=== PATIENT | male | born 1970 | race Caucasian/White ===

== ENCOUNTER → 2017-04-13 | Emergency (ER) | payer BC, MEDICARE ==
[~2017-04-13] VITALS: Ht 182.9 cm; Wt 113.4 kg
[~2017-04-13] MED LIST: AC325T PO; CALC500T6 PO; CETI10TA17 PO; DXM4T PO; HC1C30 TOP; HDR4T PO; HYDR25CA5 PO; LEVE100S PO; LRZ1T PO; MULT-974 PO; OMEP20CA12 PO; ONDANSETRON 4 MG/2 ML (SDV) Z0FRAN IVP ONE; OXC40TCR PO; OXC5T PO; PANTOPRAZOLE 40 MG/10 ML (PROTONIX) VIAL IV ONE; PHEN100O PO; SNN187T PO; fentaNYL INJECTION 100 MCG/2 ML AMP IVP STA
[2017-04-13 19:01] LABS: BASOPHILS % (AUTO) 0 % (0-10); EOSINOPHILS # (AUTO) 0.1 10^3/uL (0.0-0.3); EOSINOPHILS % (AUTO) 1 % (0-10); LYMPHOCYTES # (AUTO) 3.5 X 10^3 (1.0-4.0); LYMPHOCYTES % (AUTO) 33 % (12-44); MEAN CORPUSCULAR HEMOGLOBIN 31 PG (25-34); MEAN CORPUSCULAR HGB CONC 34 G/DL (32-36); MEAN CORPUSCULAR VOLUME 92 FL (80-99); MEAN PLATELET VOLUME 9.8 FL (7.4-10.4); MONOCYTES % (AUTO) 9 % (0-12); NEUTROPHILS % (AUTO) 57 % (42-75); PLATELET COUNT 259 10^3/uL (130-400); RED BLOOD COUNT 5.12 10^6/uL (4.35-5.85); WHITE BLOOD COUNT 10.6 10^3/uL (4.3-11.0)
[2017-04-13 19:22] LABS: CREATINE KINASE 343 U/L (30-200); MAGNESIUM 2.6 MG/DL (1.8-2.4)
--- NOTE | 2017-04-13 19:29 | Diagnostic Imaging Report ---
CT HEAD WO-R/O STROKE Technique: Unenhanced CT imaging of the head. Indication: Right-sided weakness. Comparison: 12/09/2013. Findings: No hyperdense hemorrhage or dense MCA sign. No evidence of acute territorial infarct. Subcortical white matter hypoattenuation in the high paramedian left frontal region has improved but persistS. Dystrophic calcifications within the high left frontal region are similar. There is no midline shift or hydrocephalus. Basilar cisterns remain patent. There is an old keyanna hole defect in the left frontal calvarium. Chronic opacification of the right maxillary sinus is unchanged. Other visualized paranasal sinuses are clear. Mastoid air cells are also clear. Impression: 1. No CT evidence of new large territorial infarct or acute intracranial hemorrhage. 2. Chronic deep white matter hypoattenuation high left frontal region may relate to old ischemic injury versus gliosis. MRI could be performed to assess for acute on chronic ischemic injury, as clinically indicated. Dictated by: Dictated on workstation # [id number]
--- NOTE | 2017-04-13 19:34 | ED Neurological Problem ---
General Chief Complaint: Neurological Problems Stated Complaint: SEIZURE Nursing Triage Note: PT HAD SEIZURE AT HOME, WITNESSED BY WHO STATES THE PT WAS SITTING IN A CHAIR EATING DINNER AND BEGAIN TO HAVE TONIC CLONIC SEIZURE, LASTING ABOUT 5 MINUTES. PT WAS VERY DIAPHORETIC AND APHASIC POSTICTAL BUT WAS ABLE TO AMBULATE TO BATHROOM AND TO THE VEHICLE. PT IS CURRENTLY LETHARGIC BUT ABLE TO ANSWER QUESTIONS SLOWLY. PT ALSO STATES R LEG NUMBNESS AND HEADACHE. PT HAS HX OF BRAIN TUMOR CAUSING SEIZURES IN THE PAST, HAD MEDICATIONS CHANGED ABOUT 5-6 WEEKS AGO. Nursing Sepsis Screen: No Definite Risk Source: patient (SOME MEMORY IMPAIRMENT OF EVENTS THIS EVENING, AND IS LIMITED HISTORIAN), family ( GIVES MOST OF INFORMATION) History of Present Illness Time seen by provider: 18:50 Initial Comments PT ARRIVES VIA POV FROM HOME PT WITH HISTORY OF SEIZURES DUE TO BRAIN TUMOR--DX 2013--NO SEIZURE FOR OVER A YEAR HAS BEEN WEANED OFF DEPAKOTE 1500 MG A DAY, AND HIS DOSE OF KEPPRA HAS BEEN INCREASED OVER THE LAST 5-6 WEEKS. PT ALSO TAKES LAMICTAL. PT WAS EATING DINNER TONIGHT AND HAD A GENERALIZED TONIC-CLONIC SEIZURE, LASTING 5 MINUTES. STATES HIS FIRST SEIZURE AT THE TIME HE WAS DX WITH BRAIN TUMOR WAS WORSE THAN THIS BUT WAS SIMILAR, BUT SUBSEQUENT SEIZURES WERE MILDER, FOCAL / PARTIAL SEIZURES WITH SHAKING OF MOSTLY RIGHT ARM AND LEG, AND PT WAS NOT UNRESPONSIVE DURING THE EPISODES, AND COULD TALK A LITTLE . NO INJURY PT HAD POST ICTAL CONFUSION, AND IS STILL SOMEWHAT CONFUSED/SLOW MENTATION C/O HEADACHE--RATES 3/10 C/O RIGHT LEG NUMBNESS AND WEAKNESS, SOME DIFFICULTY WALKING AT HOME DUE TO RIGHT LEG WEAKNESS--PT STATES WHEN HE WAS FIRST DX WITH BRAIN TUMOR, HE HAD RIGHT SIDE WEAKNESS/PARALYSIS/PARESTHESIAS, BUT THOSE SYMPTOMS ESSENTIALLY HAD RESOLVED WITH TREATMENT OF TUMOR PT HAS HAD ONGOING ISSUES WITH TREMORS TO HANDS, AND LEGS--RIGHT > LEFT NO VISION CHANGES NO DIZZINESS C/O MILD NAUSEA, NO VOMITING NO COUGH OR DIFFICULTY BREATHING NO CHEST PAIN OR PALPITATIONS NO FEVER OR RECENT ILLNESS NO NECK PAIN OR STIFFNESS WAS VERY DIAPHORETIC PCP: DR. [facility] NEUROLOGY: Allergies and Home Medications Allergies Coded Allergies: phenytoin (Unverified Allergy, Unknown, 03/14/14) Home Medications Acetaminophen 325 Mg Tab, 650 MG PO Q4H PRN for PAIN for 7 Days Prescribed by: MARI HAMILTON on 12/22/13 1444 Calcium Carbonate 500 Mg Tab.chew, 500-1,000 MG PO Q3H PRN for HEARTBURN, #1 Prescribed by: MARI HAMILTON on 12/22/13 1444 Cetirizine Hcl 10 Mg Tablet, 10 MG PO DAILY, (Reported) Dexamethasone 4 Mg Tab, 16 MG PO DAILY@0700, #1 Prescribed by: MARI HAMILTON on 12/22/13 1444 Hydrocortisone 30 Gm Cr, 1 APPLIC TOP TID for 1 Days Prescribed by: MARI HAMILTON on 12/22/13 1444 Hydromorphone Hcl 4 Mg Tab, 4 MG PO Q4H PRN for PAIN, #30 Prescribed by: MARI HAMILTON on 12/22/13 1444 Hydroxyzine Pamoate 25 Mg Capsule, 25 MG PO Q8HR PRN for ITCHING, #1 Prescribed by: MARI HAMILTON on 12/22/13 1444 Levetiracetam 100 Mg/1 Ml Solution, 2,000 MG PO BID PRN for SEIZURE ACTIVITY for 1 Days Prescribed by: MARI HAMILTON on 12/22/13 1541 Lorazepam 1 Mg Tab, 1 MG PO BID for 30 Days, Ref 0 Prescribed by: MARI HAMILTON on 12/22/13 144 Multivitamin 1 Each Tablet, 1 TAB PO DAILY, (Reported) Omeprazole 20 Mg Capsule.dr, 40 MG PO DAILY, (Reported) TAKES 2 (20MG) CAPSULES DAILY Oxycodone Hcl 5 Mg Tab, 15 MG PO Q3H PRN for PAIN, #60 Ref 1 Prescribed by: MARI HAMILTON on 12/22/13 1444 Oxycodone Hcl 40 Mg Tab, 40 MG PO Q12HR for 28 Days, Ref 0 Prescribed by: MARI HAMILTON on 12/22/13 144 Phenytoin 100 Mg/4 Ml Oral.susp, 150 MG PO BID for 60 Days, Ref 1 Prescribed by: MARI HAMILTON on 12/22/13 1444 Senna 187 Mg Tab, 25.8 MG PO BID for 60 Days, Ref 1 Prescribed by: MARI HAMILTON on 12/22/13 0881 Constitutional: no symptoms reported Eyes: No Symptoms Reported Ears, Nose, Mouth, Throat: no symptoms reported Respiratory: no symptoms reported Cardiovascular: no symptoms reported Gastrointestinal: see HPI, No abdominal pain, No loss of appetite, nausea, No vomiting Genitourinary: no symptoms reported Musculoskeletal: no symptoms reported Skin: no symptoms reported Psychiatric/Neurological: See HPI, Cognitive Dysfunction, Headache, Numbness, Tingling, Tonic Clonic Seizures, Weakness Endocrine: No Symptoms Reported Hematologic/Lymphatic: No Symptoms Reported Past Dztrvez-Tsuloa-Sqjqev Hx Patient Social History Alcohol Use: Denies Use Recreational Drug Use: No Smoking Status: Never a Smoker Recent Foreign Travel: No Contact w/Someone Who Travel: No Recent Infectious Disease Expo: No Surgeries HX Surgeries: Yes (BACK SURGERY; BRAIN BIOPSY) Surgeries: Neurological, Orthopedic Respiratory Hx Respiratory Disorders: No Cardiovascular Hx Cardiac Disorders: No Neurological Hx Neurological Disorders: Yes (TREMORS) Neurological Disorders: Brain Tumor, Seizure Disorder Genitourinary Hx Genitourinary Disorders: No Gastrointestinal Hx Gastrointestinal Disorders: Yes Gastrointestinal Disorders: Gastroesophageal Reflux Musculoskeletal Hx 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) Musculoskeletal Disorders: Degenerate Disk Disease, Rheumatoid Arthritis, Chronic Back Pain Endocrine Hx Endocrine Disorders: No HEENT HX ENT Disorders: No Cancer Hx Cancer: Yes Cancer: Brain Psychosocial Hx Psychiatric Problems: No Integumentary HX Skin/Integumentary Disorder: No Blood Transfusions Hx Blood Disorders: No Family Medical History Family Medial History: Family history: Diabetes mellitus 03 FATHER Family history: Hypertension 03 FATHER Myocardial infarction 03 FATHER Physical Exam Vital Signs Vital Sign - Last 12Hours 04/13/17 04/13/17 04/13/17 19:05 19:40 23:19 Temp 98.0 Pulse 102 Resp 18 B/P (MAP) 135/92 Pulse Ox 96 O2 Delivery Nasal Cannula O2 Flow Rate 2.00 Capillary Refill : Less Than 3 Seconds General Appearance: WD/WN, no apparent distress, other (LETHARGIC, WITH SLOW MENTATION) HEENT: PERRL/EOMI, normal ENT inspection, TMs normal, pharynx normal Neck: non-tender, full range of motion, supple, normal inspection Respiratory: normal breath sounds, no respiratory distress, no accessory muscle use Cardiovascular: normal peripheral pulses, regular rate, rhythm, no edema, no JVD, no murmur Peripheral Pulses: 3+ Dorsalis Pedis (R), 3+ Left Dors-Pedis (L), 3+ Radial Pulses (R), 3+ Radial Pulses (L) Gastrointestinal: normal bowel sounds, non tender, soft Back: normal inspection, no vertebral tenderness Extremities: normal range of motion, non-tender, normal inspection, no pedal edema, no calf tenderness, normal capillary refill Neurologic/Psychiatric: 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 IS ABLE TO RECALL EVENTS OF EARLIER TODAY. 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 ) Crainal Nerves: normal hearing, normal speech, PERRL Coordination/Gait: normal finger to nose Motor/Sensory: no sensory deficit, no pronator drift, other ( ABOVE) Skin: normal color, warm/dry Progress/Results/Core Measures Results/Orders Lab Results Laboratory Tests Test 04/13/17 18:54 Range/Units White Blood Count 10.6 4.3-11.0 10^3/uL Red Blood Count 5.12 4.35-5.85 10^6/uL Hemoglobin 16.0 13.3-17.7 G/DL Hematocrit 47 40-54 % Mean Corpuscular Volume 92 80-99 FL Mean Corpuscular Hemoglobin 31 25-34 PG Mean Corpuscular Hemoglobin Concent 34 32-36 G/DL Red Cell Distribution Width 12.0 10.0-14.5 % Platelet Count 259 130-400 10^3/uL Mean Platelet Volume 9.8 7.4-10.4 FL Neutrophils (%) (Auto) 57 42-75 % Lymphocytes (%) (Auto) 33 12-44 % Monocytes (%) (Auto) 9 0-12 % Eosinophils (%) (Auto) 1 0-10 % Basophils (%) (Auto) 0 0-10 % Neutrophils # (Auto) 6.0 1.8-7.8 X 10^3 Lymphocytes # (Auto) 3.5 1.0-4.0 X 10^3 Monocytes # (Auto) 1.0 0.0-1.0 X 10^3 Eosinophils # (Auto) 0.1 0.0-0.3 10^3/uL Basophils # (Auto) 0.0 0.0-0.1 10^3/uL Prothrombin Time 13.0 12.2-14.7 SEC INR Comment 1.0 0.8-1.4 Activated Partial Thromboplast Time 26 24-35 SEC Sodium Level 142 135-145 MMOL/L Potassium Level 4.1 3.6-5.0 MMOL/L Chloride Level 108 H 98-107 MMOL/L Carbon Dioxide Level 17 L 21-32 MMOL/L Anion Gap 17 H 5-14 MMOL/L Blood Urea Nitrogen 12 7-18 MG/DL Creatinine 1.01 0.60-1.30 MG/DL Estimat Glomerular Filtration Rate > 60 BUN/Creatinine Ratio 12 0-20 Glucose Level 96 70-105 MG/DL Glucometer 90 70-110 MG/DL Calcium Level 9.6 8.5-10.1 MG/DL Magnesium Level 2.6 H 1.8-2.4 MG/DL Total Bilirubin 0.6 0.1-1.0 MG/DL Aspartate Amino Transf (AST/SGOT) 31 5-34 U/L Alanine Aminotransferase (ALT/SGPT) 66 H 0-55 U/L Alkaline Phosphatase 80 40-136 U/L Total Creatine Kinase 343 H 30-200 U/L Creatine Kinase MB 4.4 <6.6 NG/ML Troponin I < 0.30 <0.30 NG/ML Total Protein 7.6 6.4-8.2 GM/DL Albumin 4.8 H 3.2-4.5 GM/DL TSH [place] Testing 1.80 0.35-4.94 UIU/ML Valproic Acid (Depakene) Level < 2.0 L 50.0-100.0 UG/ML My Orders Orders - MUKUND WU DO Saline Lock/Iv-Start (04/13/17 18:51) Ekg Tracing (04/13/17 18:51) O2 (04/13/17 18:51) Monitor-Rhythm Ecg Trace Only (04/13/17 18:51) Ct Head Wo-R/O Stroke (04/13/17 18:51) Cbc With Automated Diff (04/13/17 18:51) Creatine Kinase (04/13/17 18:51) Creatine Kinase Mb (04/13/17 18:51) Magnesium (04/13/17 18:51) Protime With Inr (04/13/17 18:51) Partial Thromboplastin Time (04/13/17 18:51) Thyroid Analyzer (04/13/17 18:51) Troponin I (04/13/17 18:51) Ua Culture If Indicated (04/13/17 18:51) Valproic Acid (04/13/17 18:51) Comprehensive Metabolic Panel (04/13/17 19:28) Chest 1 View, Ap/Pa Only (04/13/17 19:34) Fentanyl Injection (Sublimaze Injection (04/13/17 19:39) Ondansetron Injection (Zofran Injectio (04/13/17 20:00) Pantoprazole Injection (Protonix Injecti (04/13/17 20:00) Medications Given in ED Current Medications Medications Dose Ordered Sig/Lawson Route Start Time Stop Time Status Last Admin Dose Admin Ondansetron HCl 4 mg ONCE ONCE IVP 04/13/17 20:00 04/13/17 20:01 DC 04/13/17 19:57 4 MG Pantoprazole 40 mg ONCE ONCE IV 04/13/17 20:00 04/13/17 20:01 DC 04/13/17 19:57 40 MG Vital Signs/I&O Vital Sign - Last 12Hours 04/13/17 04/13/17 04/13/17 19:05 19:40 23:19 Temp 98.0 98.0 Pulse 102 83 Resp 18 18 B/P (MAP) 135/92 Pulse Ox 96 O2 Delivery Nasal Cannula Nasal Cannula O2 Flow Rate 2.00 Blood Pressure Mean: 106 Progress Note : Progress Note HEADACHE IMPROVED WITH MEDICATION PT WITH IMPROVED MENTATION PARESTHESIAS AND WEAKNESS TO RIGHT LEG RESOLVED PT STATES HE FEELS BACK TO NORMAL PRIOR TO DISMISSAL PT AMBULATED OUT OF ER WITHOUT DIFFICULTY. ECG Initial ECG Impression Time: 18:59 Initial ECG Rate: 95 Initial ECG Rhythm: Normal Sinus Initial ECG Impression: Normal Initial ECG Comparisson: Unchanged (EXCEPT FOR SLOWER RATE.) Diagnostic Imaging Comments CT HEAD--NO ACUTE PROCESS, CHRONIC CHANGES--PER RADIOLOGIST REPORT @ 1935 CXR--NO ACUTE PROCESS, PER RADIOLOGIST REPORT @ 8 Reviewed: Reviewed by Me Departure Communication Progress Notes 2004--CALLED [facility] 2008--SPOKE WITH SANDWICH COUNTER ATTENDANTJON. HE WILL PAGE NEUROLOGIST/EPILEPSY SPECIALIST DATA ARCHITECT MANAGER 2015--[facility] CALLED BACK 2019--SPOKE WITH DR. SOLIMAN, NEUROLOGIST DATA ARCHITECT MANAGER. SHE ADVISES TO RESTART DEPAKOTE--1000 MG TONIGHT AND THEN 1500 MG EVERY MORNING. SHE WILL INFORM DR. SHEIKH IN THE MORNING, AND HIS OFFICE WILL CONTACT PT REGARDING FOLLOW UP APPOINTMENT ( PREVIOUSLY SCHEDULED ROUTINE FOLLOW UP APPOINTMENT FOR 05/12/17) PT AND FAMILY AGREEABLE TO THIS PLAN. PT HAS PLENTY OF DEPAKOTE TABLETS AT HOME. Impression Impression: Primary Impression: Seizure Additional Impression: Hx of brain cancer Disposition: HOME, SELF-CARE Condition: Improved Departure-Patient Inst. Referrals: CHALO CARPENTER MD (PCP/Family) Primary Care Physician Patient Instructions: Seizures, Adult (DC) Add. Discharge Instructions: RESTART DEPAKOTE--TAKE 1000 MG TONIGHT AND THEN TAKE 1500 MG EVERY MORNING CONTINUE YOUR OTHER MEDICATIONS PRESCRIBED FOLLOW UP WITH YOUR NEUROLOGIST TOMORROW--HIS OFFICE SHOULD BE CONTACTING YOU REGARDING FURTHER FOLLOW UP APPOINTMENT All discharge instructions reviewed with patient and/or family. Voiced understanding. MUKUND WU DO Apr 13, 2017 19:34
[2017-04-13 19:41] LABS: TROPONIN I < 0.30 NG/ML (<0.30)
[2017-04-13 19:44] LABS: VALPROIC ACID < 2.0 UG/ML (50.0-100.0)
[2017-04-13 19:59] LABS: ALANINE AMINOTRANSFERASE 66 U/L (0-55); ALBUMIN 4.8 GM/DL (3.2-4.5); ANION GAP 17 MMOL/L (5-14); ASPARTATE AMINO TRANSFERASE 31 U/L (5-34); BILIRUBIN,TOTAL 0.6 MG/DL (0.1-1.0); BLOOD UREA NITROGEN 12 MG/DL (7-18); BUN/CREATININE RATIO 12 (0-20); CALCIUM 9.6 MG/DL (8.5-10.1); CARBON DIOXIDE 17 MMOL/L (21-32); CHLORIDE 108 MMOL/L (98-107); CREATININE SERUM 1.01 MG/DL (0.60-1.30); GFR ESTIMATED > 60; GLUCOSE 96 MG/DL (70-105); HEMOLYSIS 11 (-100-29); ICTERUS 0.6 (-100-1.9); LIPEMIA 11 (-100-49); POTASSIUM 4.1 MMOL/L (3.6-5.0); SODIUM 142 MMOL/L (135-145); TOTAL PROTEIN 7.6 GM/DL (6.4-8.2)
--- NOTE | 2017-04-13 19:59 | Diagnostic Imaging Report ---
EXAM: CHEST 1 VIEW, AP/PA ONLY INDICATION: Right-sided weakness. Seizure. COMPARISON: Chest radiographs 12/06/2013. FINDINGS: Low lung volumes. Normal heart size and pulmonary vascularity. No dense consolidation, pleural effusion or pneumothorax. No acute osseous findings. No significant change. IMPRESSION: Low lung volumes. Otherwise, no acute cardiopulmonary findings. Dictated by: Dictated on workstation # [id number]
[2017-04-13 23:19] VITALS: BP 117/84
--- OUTSIDE RECORDS SUMMARY | 2017-04-14 09:25 | XMS REPORT | Continuity of Care Document ---
Author Author [facility] Organization [facility] Address Unknown Phone Unavailable Allergies Medications Problems Procedures Results Encounters ACCT No. Visit Date/Time Discharge Status Pt. Type Provider Facility Loc./Unit Complaint [id number] 03/14/2014 09:33:00 2013 11:31:00 DIS Emergency [id number] 12/05/2013 15:09:00 2013 15:15:00 DIS Inpatient [id number] 11/27/2013 22:24:00 2013 00:40:00 DIS Emergency
--- OUTSIDE RECORDS SUMMARY | 2017-04-14 09:25 | XMS REPORT | Continuity of Care Document ---
Author Author [facility] Organization [facility] Address Unknown Phone Unavailable Care Team Providers Care Cutter Grind Tool Technician Name Role Phone Brenton Greer PCP [phone] Source Comments Some departments are not documenting in the electronic medical record. If you do not see the information that you expected, contact Release of Information in the Health Information Management department at [phone] for further assistance in locating additional records.[facility] Active Allergies and Adverse Reactions Allergen Noted Date Severity Reactions Comments Dilantin 06/04/2016 High RASH Current Medications Prescription Sig. Disp. Refills Start End Date Status Date senna/docusate Take 1 Tab by mouth twice 12/05/19 Active (SENOKOT-S) 8.6/50 mg daily. [address](+) Take 2 Caps by mouth 90 Cap 4 12/22/19 Active (PRILOSEC) 20 mg capsule daily. 14 NAPROXEN SODIUM (ALEVE Take by mouth. Active PO) sildenafil(+) (VIAGRA) 50 Take 1 Tab by mouth as 10 Tab 0 10/02/20 Active mg tablet Needed for Erectile 15 dysfunction. divalproex ER (DEPAKOTE Take 1 tab 3 times daily; 270 Tab 3 04/04/20 Active ER) 500 mg tablet equal 1500mg 16 diazePAM (VALIUM) 10 mg TAKE ONE TABLET BY MOUTH 10 Tab 3 09/03/20 Active tablet 30-60 MINUTES BEFORE MRI 16 Levetiracetam 1,000 mg take 2 tabs twice daily 360 Tab 3 10/31/19 Active tab 17 HYDROcodone/acetaminophen Take 1 Tab by mouth every 100 Tab 0 Active (NORCO) 5/325 mg tablet 4 hours as needed for 17 Pain ondansetron (ZOFRAN) 8 mg take 1 tab every 8 hours 60 Tab 5 12/30/19 Active tablet as needed for nausea 17 LORazepam (ATIVAN) 1 mg 1 Tab every 12 hours. 60 Tab 5 01/24/20 Active tablet 17 ranitidine(+) (ZANTAC) Take 1 Tab by mouth twice 180 Tab 3 01/29/20 Active 150 mg tablet daily. 17 hydrocortisone (CORTEF) Take with food. Take 2 270 Tab 4 01/30/20 Active 10 mg tablet in am and 1 at 4 pm. 17 PARoxetine (PAXIL) 40 mg Take 1 Tab by mouth 90 Tab 3 01/30/20 Active tablet daily. 17 lamoTRIgine (LAMICTAL) 25 Take 1 Tab by mouth twice 60 Tab 11 Active mg tablet daily. 17 lamoTRIgine (LAMICTAL) Take 1 Tab by mouth 60 Tab 11 03/05/20 Active 100 mg tablet daily. 17 Levetiracetam (KEPPRA) Take as instructed 180 Tab 11 03/05/20 Active 1,000 mg tab 17 Active Problems Problem Noted Date Insomnia 02/01/2015 Overview: 02/01/2015 Even with the ativan at night he only sleeps a few hours at a time. Very anxious and under a lot of stress. Will start paxil 10 mg and see if it will help with anxiety and with sleep. L ast Assessment & Plan: Improved Fatigue 06/20/2014 Overview: 06/20/14 have asked that he minimize day time sleeping and start melatonin prn at night 01/28/2017 MRI is stable. He is spending a lot of time in bed. L ast Assessment & Plan: Managing well. Steroid long-term use 04/26/2014 Overview: Previously on decadron, now on hydrocortisone: tremors, swelling, and agitation L ast Assessment & Plan: Lasix for 3 days to reduce swelling around his neck Persistent headaches 12/23/2013 Overview: 12/21/2013 I started him on oxycontin last week and he had good relief but the doctor at rehab stopped it due to rash and tried morphine at lower dose with exacerbation of pain. He is back on the oxycontin now and much better. 01/18/14:his head aches are better and has been using less of the prn oxycodone,will continue with the Oxycontin and oxycodone PRN. Continue with the decadron 16 mg PO q day 03/01/2014 He has not needed any breakthrough medication for over three weeks. He is down to 8 mg a day on decadron. We will cut him to 4 mg for two weeks then to 2 mg. We will cut the oxycontin to 30mg bid. 05/25/2014 He is well controlled on 20 bid of oxycontin and using only prn tylenol. 06/20/2014 We will try 20/10 on his oxycontin this month and see how he does. Some of fatigue is likely medication. 09/12/2014 He has a headache about every 3 days and it is relieved with tylenol. He is taking 20/10/ of oxycontin. We will try tapering his dose to 10/10 for a week then 10/0. If he has to use a lot of breakthrough he will restart the regular dose. 03/29/2015 Using only PRN tylenol! 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 He was found on CT scan to have a Left frontal lesion that had vasogenic edema, that was concerning for a primary brain tumor. Because patient continued to have seizures and was not maintaining his airway he was intubated and transferred to for further treatment of seizures and biopsy of this new lesion. 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 He was discharged to in patient rehab. 12/21/2012 After thinking about the options he has elected to undergo combined temodar and radiation therapy here at . We will start his temodar klarissa and add in xrt. 01/18/14:completed day 15 of XRT today and has been tolerating the XRT and temodar well.He will complete radiation and Temodar and will re image him with a MRI in 6 weeks from today. 03/01/2014 He is doing much better. His MRI shows improvement. We will begin maintenance temodar 150 mg.m2. 03/29/14 exam stable, will see neuro about seizures, continue with cycle 2 temodar 04/26/14 exam stable, will continue with temodar 05/25/2014 MRI is improved again. He is more alert but having more seizures. He is being more active. He has nothing focal on his exam. We will continue the temodar. I asked them to taper the hydrocortisone to 10. RTC in one month and MRI in 3 months. 06/20/14 exam stable, tolerating temodar, return 1 month, mri in 2 months. He is still cognitively slow and asks same questions repeatedly. His executive function is poor. He remains TOTALLY and PERMANENTLY DISABLED due to his cognitive and executive function. He is slow to ambulate as well. 07/20/14: exam stable, last seizure in April. Pt was started on lamictal in April and since then he has not had seizure but he has had increased nausea since then. No vomiting. He reduced hydrocortison to 10 mg in am and 5 mm in noon. He has also reduced ativan with an aim of stopping it per his neurologist recommendation. He is due for MRI in am month. 08/15/2014: Still having some nausea associated with temodar. MRI stable with small area of increased intensity likely representing post radiation changes. Will try premedication with zofran, ativan and add dexamethasone 2 mg on days 1-7 to help with nausea. MRI in 2 months. 09/12/2014 He had a lot of nocturia on the days he took the dexamethasone. He is fine now. Both feel his memory and speech are better although he still has days he does not know what day it is. He will continue the temodar and RTC in 4 weeks with an MRI. 10/10/2014 More headaches with his chemotherapy otherwise stable. MRI is stable from last month and still markedly improved from start. Will stop the decadron with the temodar and instead put back on ativan with each dose of zofran. Will have him use oxycontin 20 mg at hs for his headache. RTC in 4 weeks with lab. 11/07/2014 He is doing very well. They did 20 bid of oxycontin during the chemotherapy as well as added lorazepam to the zofran. Then they tapered him down to 10 bid on the oxycontin and he has used tylenol only twice! He is having trouble with sleeping on none chemotherapy nights staying awake until 3 AM. Will add the ativan at night on nonchemo nights. Continue temodar and reimage in December. 12/06/2014 He is on 10 mg of oxycontin in the morning only and doing well. He does get shaky after working for awhile. We will see him in 4 weeks with an MRI. He will try not increasing his oxycontin during the chemotherapy. He will also try tapering off the zofran he is taking at the end of the month. I think as his opioids are decreased he will not need the zofran. 01/03/2015 He is doing well with the 10 mg oxycontin in am. He still has some shakes but no real seizure activity. MRI improved since started therapy but stable since last scan. Will repeat in 3 months. Discussed potentially stopping his chemotherapy this spring. He is very anxious about this. Will stop the oxycontin and see how he does. RTC in 4 weeks and continue temodar. 02/01/2015 Repeat MRI done as he had a seizure on Thursday. He has had more headaches without the oxycontin but they are relieved with tylenol. He has been a lot more anxious and still having trouble with sleep. 02/27/2015 He is doing quite well today, mood has improved with Paxil. Continue Temodar as prescribed and follow up in 4 week with labs and 8 weeks with MRI 03/29/2015 Not using any opioids for his headaches. He has been more tired and sleepy this week but had different activities. Physical activities have been limited as they are afraid he will have a seizure. We discussed this at length. He will gradually increase his exercise. RTC in one month with MRI. Will discuss how long to treat him at that time. 04/26/2015 He is feeling better than he has for 18months. Not taking opioids any more. Still takes bid zofran but will try to taper off of this. Neurologically stable with reduced memory and executive funciton. MRI stable. Will STOP TEMODAR at this time and see him in 2 months with MRI and levels of his anticonvulsants. We discussed at length lack of data to continue chemotherapy. 07/03/2015 Feeling well. Had seizure since last visit and level was low. Increased dose and they wish to have more frequent level testing. MRI stable. Will see in 2-3 months with MRI and do levels at home more regularly. 10/02/2015 He has a URI currently. Lots of questions again about his tumor and size. MRI is stable. Will see in 3-4 months with MRI. 01/29/2016 He is feeling well without complaints. MRI stable today. RTC in 4 months with MRI. 06/04/2016 MRI appears preliminarily stable. RTC in 4 months with MRI. 10/01/2016 MRI is stable. Encouraged patient to follow-up with neurologists with regards to tremor. RTC in 4 months with MRI. 01/28/2017 He gets up and helps daughter and then goes back to bed. He spends a lot of time in bed. He has some tremor in his right leg. MRI is unchanged. thinks memory may be worse. Will increase his paxil and his replacement hydrocortisone and see if he feels better. RTC in 4 months with MRI. L ast Assessment & Plan: He is doing quite well, staying very busy. His depression and insomnia have improved on the Paxil and he is managing his fatigue well. He is to follow up in 4 weeks with lab. PLAN 1. Continue Temodar at prescribed dose 2. Return to clinic in 4 weeks with labs and visit 3. Will get MRI and labs with visit in 8 weeks 4. F/U in interim as needed Chemotherapy follow-up examination 12/15/2013 Elevated CPK 11/29/2013 SAH (subarachnoid hemorrhage) (HCC) 11/28/2013 Seizure disorder (HCC) 11/28/2013 Overview: 01/18/14:On Keppra and Depakote now. Dilantin discontinued after he had rash. No seizures in the last 3 weeks ,will continue the keppra and depakote 03/29/14 2 seizures in the past 2 weeks, will send to neuro 04/26/14 no actual seizure activity, will start lamictal and taper off the morning ativan, keep 2mg at night 05/25/2014 Seeing neurology now and having meds changed. 12/06/2014 No seizures for over 6months. 02/01/2015 Had a seizure Thursday after a long hard week end. Also had viral infection starting that day. MRI is stable and his exam is stable. Discussed this is likely related to his fatigue and long week end but may also be low levels of his drugs. Will continue the temodar and see him in 4 weeks with counts. 02/27/2015 No seizure since last visit. Depakote was increased by neurologist Dr. Mcgrath Last Assessment & Plan: No recent seizure activity. Continue medication as prescribed and close follow up with Dr. Mcgrath. Resolved Problems Problem Noted Date Resolved Date Nausea 06/20/2014 11/07/2014 Overview: 06/20/2014 This has a dysgeusia component to it. It usually occurs in the afternoon but last night occurred after he went to bed and was relieve with granola bar. I encourage him to have a snack late afternoon. If that does not relieve the nausea he can schedule the compazine but it will impair his fatigue and cause sedation. 07/20/14: his nausea is worse and he has reduced his ativan per neuro recs. 09/12/2014 Under better control with adding the decadron. L ast Assessment & Plan: - we have started reglan to see if this helps his nausea. Pain in left hip 03/29/2014 01/05/2015 Last Assessment & Plan: We will continue to titrate his pain medicine, but will titrate the ativan first Starting next week, decrease oxycontin to 10mg in the morning and 20mg at night- prescriptions provided Thrush, oral 01/18/2014 05/26/2014 Overview: Currently on Nystatin swish. Diflucan prescribed Chemotherapy induced nausea and vomiting 12/27/2013 03/03/2014 Rash 12/23/2013 08/15/2014 Overview: 12/21/2013Very pruritic rash over most of body. When seen last week I thought at least part of it was fungal. He has had diflucan and his mouth has cleared as well as some of the rash in creases but overall he is more erythematous and we will stop the dilantin by tapering in half over several days. If it does not resolve will have to look at other drugs. 01/18/14:Rash has resolved after stopping the dilantin Rhabdomyolysis 11/30/2013 12/23/2013 Hypernatremia 11/30/2013 12/23/2013 Hyperchloremia 11/30/2013 12/23/2013 THERESA (acute kidney injury) (HCC) 11/29/2013 03/03/2014 Respiratory failure (HCC) 11/28/2013 12/23/2013 Cerebral edema (HCC) 11/28/2013 03/03/2014 Mechanically assisted ventilation 11/28/2013 12/23/2013 Brain lesion 11/28/2013 12/23/2013 Most Recent Encounters Date Type Specialty Providers Description 03/05/2017 Office Visit Neurology Mitch Mcgrath MD Tremor (Primary Dx); Partial symptomatic epilepsy with complex partial seizures, not intractable, without status epilepticus (HCC) 02/06/2017 Telephone Oncology Paloma Mendez MD Other 02/04/2017 [facility] Neurology Mitch Mcgrath MD Encounter 01/29/2017 Telephone Oncology Randy Vail MD Appointment 01/28/2017 Office Visit Oncology Paloma Mendez MD Chronic fatigue ( Primary Dx); Oligodendroglioma (HCC) 01/28/2017 [facility] Radiology Lula Currie PA-C Encounter 01/27/2017 Screening Form 01/23/2017 Refill Oncology Paloma Mendez MD Immunizations Name Dates Previously Given Next Due Flu Vaccine 07/04/2015, 09/12/2014 Quadrivalent=>3 Yo (Preservative Free) Social History Tobacco Use Types Packs/Day Years Used Date Former Smoker Pipe, Cigars Alcohol Use Drinks/Week oz/Week Comments Yes 18 Cans of 10.8 beer Last Filed Vital Signs Vital Sign Reading Time Taken Blood Pressure 134/81 03/05/2017 2:07 PM CDT Pulse 138 03/05/2017 2:07 PM CDT Temperature 36.7 C (98.1 F) 03/05/2017 2:07 PM CDT Respiratory Rate 12 03/05/2017 2:07 PM CDT Height 1.8 m (5' 10.87") 03/05/2017 2:07 PM CDT Weight 132.904 kg (293 lb) 03/05/2017 2:07 PM CDT Body Mass Index 41.02 03/05/2017 2:07 PM CDT Oxygen Saturation 92% 01/28/2017 2:27 PM CDT Plan of Care Health Maintenance Due Date Last Done Comments Physical (Comprehensive) 1977 Exam Pertussis Vaccine 1981 Tetanus Vaccine 1987 Influenza Vaccine 06/19/2017 07/04/2015, 09/12/2014 Results from Last 3 Months * TSH WITH FREE T4 REFLEX (01/28/2017 3:25 PM) Component Value Range TSH 4.579 0.35-5.00 MCU/ML Specimen Blood * CORTISOL,RANDOM (01/28/2017 3:25 PM) Component Value Range Cortisol, Random 3.8 (L) 5.0-20.0 MCG/DL Specimen Blood * COMPREHENSIVE METABOLIC PANEL (01/28/2017 3:25 PM) Component Value Range Sodium 137 137-147 MMOL/L Potassium 4.5 3.5-5.1 MMOL/L Chloride 104 98-110 MMOL/L Glucose 88 70-100 MG/DL Blood Urea Nitrogen 17 7-25 MG/DL Creatinine 1.05 0.4-1.24 MG/DL Calcium 9.7 8.5-10.6 MG/DL Total Protein 6.9 6.0-8.0 G/DL Total Bilirubin 0.5 0.3-1.2 MG/DL Albumin 4.5 3.5-5.0 G/DL Alk Phosphatase 58 25-110 U/L AST (SGOT) 25 7-40 U/L CO2 26 21-30 MMOL/L ALT (SGPT) 46 7-56 U/L Anion Gap 7 3-12 eGFR Non >60Comment: >60 mL/min The eGFR is not validated for use in drug dosing adjustments. Continue to use estimated creatinine clearance per dosing reference text. Please contact the Clinical Pharmacist for questions. eGFR >60Comment: >60 mL/min The eGFR is not validated for use in drug dosing adjustments. Continue to use estimated creatinine clearance per dosing reference text. Please contact the Clinical Pharmacist for questions. Specimen Blood * CBC AND DIFF (01/28/2017 3:25 PM) Component Value Range White Blood Cells 8.0 4.5-11.0 K/UL RBC 4.85 4.4-5.5 M/UL Hemoglobin 15.4 13.5-16.5 GM/DL Hematocrit 45.2 40-50 % MCV 93.2 80-100 FL MCH 31.7 26-34 PG MCHC 34.0 32.0-36.0 G/DL RDW 12.6 11-15 % Platelet Count 189 150-400 K/UL MPV 9.4 7-11 FL Neutrophils 65 41-77 % Lymphocytes 27 24-44 % Monocytes 7 4-12 % Eosinophils 1 0-5 % Basophils 0 0-2 % Absolute Neutrophil Count 5.20 1.8-7.0 K/UL Absolute Lymph Count 2.10 1.0-4.8 K/UL Absolute Monocyte Count 0.50 0-0.80 K/UL Absolute Eosinophil Count 0.10 0-0.45 K/UL Absolute Basophil Count 0.00 0-0.20 K/UL Specimen Blood * VALPROIC ACID LEVEL (01/28/2017 2:23 PM) Component Value Range Valproic Acid 65.5 50.0-100.0 MCG/ML Specimen Blood * LAMICTAL LEVEL (01/28/2017 2:23 PM) Component Value Range Lamictal 8.0Comment: Reference range: 2.5 to 15.0 Unit: mcg/mL ADDITIONAL INFORMATION This test was developed and its performance characteristics determined by [facility] in a manner consistent with CLIA requirements. This test has not been cleared or approved by the U.S. Food and Drug Administration. [facility], [address] [place] [address] Specimen Blood * MRI HEAD WO/W CONTRAST (01/28/2017 1:08 PM) Impressions IMPRESSION: Stable appearance to FLAIR hyperintense infiltrative mass lesion involving predominantly the high left frontal lobe, but with continued involvement of the corpus callosum and white matter of the right frontal lobe as well. Finalized by Kiel Kent M.D. on 01/28/2017 2:11 PM. Dictated by Kiel Kent M.D. on 01/28/2017 2:06 PM. Narrative Exam: MRI scan of the head. HISTORY: Evaluate for recurrent oligodendroglioma. Comparison studies: Multiple prior MRI scans of the head, dating back to 2013. The 2 most recent comparison studies are May and September 2016. TECHNIQUE: Multiplanar and multisequence MR imaging of the head was performed both before and after the administration of gadolinium contrast. Description: The examination is unchanged over the last several prior studies. Again noted is an infiltrative, FLAIR hyperintense mass lesion involving the high left frontal lobe. The margins are ill-defined, but this appears not significantly changed in size or imaging characteristics. This is not associated with contrast enhancement. There is mild gyral formal enlargement and sulcal effacement, but no significant mass effect. There are some small patchy areas of increased T1-weighted hyperintensity within the mass. There continues to be some involvement of the corpus callosum, and right tyler radiata and centrum semiovale. The remainder the examination is stable and unremarkable. The vascular flow voids are unremarkable. Diffusion-weighted imaging is not indicative of ischemia. Procedure Note Interface, Radiant Results - ThuJan 28, 2017 2:14 PM CDT Exam: MRI scan of the head. HISTORY: Evaluate for recurrent oligodendroglioma. Comparison studies: Multiple prior MRI scans of the head, dating back to 2013. The 2 most recent comparison studies are May and September 2016. TECHNIQUE: Multiplanar and multisequence MR imaging of the head was performed both before and after the administration of gadolinium contrast. Description: The examination is unchanged over the last several prior studies. Again noted is an infiltrative, FLAIR hyperintense mass lesion involving the high left frontal lobe. The margins are ill-defined, but this appears not significantly changed in size or imaging characteristics. This is not associated with contrast enhancement. There is mild gyral formal enlargement and sulcal effacement, but no significant mass effect. There are some small patchy areas of increased T1-weighted hyperintensity within the mass. There continues to be some involvement of the corpus callosum, and right tyler radiata and centrum semiovale. The remainder the examination is stable and unremarkable. The vascular flow voids are unremarkable. Diffusion-weighted imaging is not indicative of ischemia. IMPRESSION
== END | disposition home or self-care (01) ==
LOC: EDUNIT# 18:48 → ER 18:51
DX: G40.909 Epilepsy, unspecified, not intractable, without status epilepticus (principal); Z85.841 Personal history of malignant neoplasm of brain; Z88.8 Allergy status to other drugs, medicaments and biological substances
CPT/HCPCS: 36415; 70450; 71010; 80053; 80164; 82550; 82553; 82962; 83735; 84443; 84484; 85025; 85610; 85730; 93005; 93041; 96374; 96375

== ENCOUNTER → 2017-11-10 | Emergency (ER) | payer BC, MEDICARE ==
[~2017-11-10] VITALS: Ht 182.9 cm; Wt 113.4 kg
[~2017-11-10] MED LIST changes: +D5W 100 ML IVPB 100 ML IV ONE; +LORazepam INJ 2 MG/ML (ATIVAN) VIAL ONE; +NS (IVPB) 50 ML ONE; +NS IV 1000 ML 1,000 ML ONE; -ONDANSETRON 4 MG/2 ML (SDV) Z0FRAN IVP ONE; -PANTOPRAZOLE 40 MG/10 ML (PROTONIX) VIAL IV ONE; -fentaNYL INJECTION 100 MCG/2 ML AMP IVP STA
--- OUTSIDE RECORDS SUMMARY | 2017-11-10 15:50 | XMS REPORT | Continuity of Care Document ---
Author Author [facility] Organization [facility] Address Unknown Phone Unavailable Care Team Providers Care Clerical Office Worker Name Role Phone [employer] Unavailable Unavailable Problems Medications Allergies, Adverse Reactions, Alerts Immunizations Results Vital Signs Encounters Location Location Details Encounter Type Encounter Number Reason For Visit Attending Provider ADM Date DC Date Status Source OUTPATIENT [id number] [facility] 05/04/2017 05/04/2017 Active [facility] OUTPATIENT [id number] [facility] 07/06/2017 07/06/2017 Active [facility] OUTPATIENT [id number] [facility] 07/06/2017 Active [facility] OUTPATIENT [id number] ADRIANA TURNER 07/27/2017 07/27/2017 Active [facility] OUTPATIENT [id number] [facility] 10/14/2017 10/14/2017 [facility] Procedures Plan of Care Social History Assessment and Plan Family History Advance Directives Functional Status
--- OUTSIDE RECORDS SUMMARY | 2017-11-10 15:51 | XMS REPORT | Encounter Summary ---
Author Author [facility] Organization [facility] Address Unknown Phone Unavailable Care Team Providers Care Ash Pit Worker Name Role Phone PCP Unavailable Reason for Visit * Reason Comments Medication Refill Encounter Details Date Type Department Care Team Description 10/20/2017 Refill Comprehensive Epilepsy Mitch Mcgrath MD Localization- related Center [address] [facility] focal epilepsy with [facility] G[address] 1065 simple partial seizures [address] [place] [address] ([facility]) [place] [address] [phone] Social History Tobacco Use Types Packs/Day Years Used Date Former Smoker Pipe, Cigars Smokeless Tobacco: Never Used Alcohol Use Drinks/Week oz/Week Comments Yes 18 Cans of 10.8 beer Sex Assigned at Date Recorded Not on file as of this encounter Functional Status Functional Status Response Date of Assessment Does the patient have a hearing impairment: No 10/02/2015 Does the patient have a visual impairment: No 10/02/2015 Does the patient have impaired ambulation: No 10/02/2015 Does the patient have an activity of daily living No 10/02/2015 (ADL) impairment: Does the patient have an instrumental activity of No 10/02/2015 daily living (IADL) impairment: Cognitive Status Response Date of Assessment Does the patient have a cognitive impairment: No 10/02/2015 as of this encounter Plan of Treatment Date Type Specialty Care Team Description 07/27/2017 Procedure Pass Neurosurgery as of this encounter Visit Diagnoses Diagnosis 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
--- OUTSIDE RECORDS SUMMARY | 2017-11-10 15:51 | XMS REPORT | Encounter Summary ---
Author Author [facility] Organization [facility] Address Unknown Phone Unavailable Care Team Providers Care Sandblaster Stone Name Role Phone PCP Unavailable Reason for Visit * Reason Comments Medication Refill Encounter Details Date Type Department Care Team Description 09/04/2017 Refill Comprehensive Epilepsy Mitch Mcgrath MD [place] [address] [facility] [address] [place] [address] [place] [address] [phone] Social History Tobacco Use Types Packs/Day Years [...] Neurosurgery as of this encounter Visit Diagnoses Not on filein this encounter
--- OUTSIDE RECORDS SUMMARY | 2017-11-10 15:51 | XMS REPORT | Encounter Summary ---
Author Author [facility] Organization [facility] Address Unknown Phone Unavailable Care Team Providers Care Multi Skilled Operator Name Role Phone PCP Unavailable Reason for Visit * Reason Comments Seizure most recent seizure was Sep 04, 2017 Encounter Details Date Type Department Care Team Description 10/14/2017 Office Visit Comprehensive Epilepsy Mitch Mcgrath MD [facility] [address] [facility] focal epilepsy with [facility] [address] simple partial seizures [address] [place] [address] ([facility]) [place] [address] [phone] Social History Tobacco Use Types Packs/Day Years Used Date Former Smoker Pipe, Cigars Smokeless Tobacco: Never Used Alcohol Use Drinks/Week oz/Week Comments Yes 18 Cans of 10.8 beer Sex Assigned at Date Recorded Not on file as of this encounter Last Filed Vital Signs Vital Sign Reading Time Taken Blood Pressure 133/88 10/14/2017 9:44 AM ASSOCIATE PROFESSOR OF ANTHROPOLOGY Pulse 89 10/14/2017 9:44 AM ASSOCIATE PROFESSOR OF ANTHROPOLOGY Temperature 36.8 C (98.2 F) 10/14/2017 9:44 AM ASSOCIATE PROFESSOR OF ANTHROPOLOGY Respiratory Rate - - Oxygen Saturation - - Inhaled Oxygen - - Concentration Weight 133.8 kg (295 lb) 10/14/2017 9:44 AM ASSOCIATE PROFESSOR OF ANTHROPOLOGY Height 180.3 cm (5' 11") 10/14/2017 9:44 AM ASSOCIATE PROFESSOR OF ANTHROPOLOGY Body Mass Index 41.14 10/14/2017 9:44 AM ASSOCIATE PROFESSOR OF ANTHROPOLOGY in this encounter Functional Status Functional Status Response [...] impairment: No 10/02/2015 as of this encounter Instructions * Patient Instructions - Mitch Mcgrath MD - 10/14/2017 10:00 AM ASSOCIATE PROFESSOR OF ANTHROPOLOGY You should not drive unless 6 months free of alteration of consciousness, not work in close proximity of machines with moving parts, swim unsupervised or to work at high places.You should shower (without accumulation of water) instead of taking a bath if unsupervised. Contact us if there is an exacerbation of the seizures or any side effects from the antiepileptic medications. Stop Depakote 500 mg daily in this encounter Progress Notes * Mitch Mcgrath MD - 10/14/2017 10:00 AM ASSOCIATE PROFESSOR OF ANTHROPOLOGY Formatting of this note may be different from the original. Date of Service: 10/14/2017 Subjective: Bhupinder Schofield is a 47 y.o. male. History of Present Illness MEDICATIONS: Lamictal 200 mg b.i.d., Zonisamide 500 mg once a day, Depakote ER 500 mg qday CHIEF COMPLAINT: Seizure, HISTORY OF PRESENT ILLNESS: Mr. 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 His last seizures are in June 2015, in the setting of low Depakote level, May, and August. the last seizure was not induced by any medication change, missed medication, or fever. He did not lose his consciousness,. He wa sitting in the couch, and he had right hand, leg clonic movements, With head turn to the right. The patient remembers everything. They think the seizure was about 4 minutes. His talked to him after the seizure and he sounded not being able to respond. In about 10 minutes postictally he was back to normal. DuHis Lamotrigine is increased to 200 mg bid after this event. They did not notice any side effect. They saw Dr. Vail in July who recommended to follow up with serial MRIs in 6 months. He thought that there is residual low grade tumor with scar tissue that we are seeing in the high left frontal lobe. Last MRI from 07/27/2017 I reviewed the images and agree with the report: 1. Stable nonenhancing left cerebral and callosal mass. 2. Chronic opacified and atelectatic right maxillary sinus consistent with silent sinus syndrome. Past Medical History: Diagnosis Date Cancer of brain (HCC) Seizure disorder (HCC) Seizures (HCC) Family History Problem Relation Age of Onset Diabetes Father Heart Attack Father Hypertension Father High Cholesterol Father Other Father 36 AVM rupture Allergies Allergen Reactions Dilantin [Phenytoin Sodium Extended] RASH Objective: diazePAM (VALIUM) 10 mg tablet TAKE ONE TABLET BY MOUTH 30-60 MINUTES BEFORE MRI divalproex (DEPAKOTE ER) 500 mg ER tablet Take 1 tablet by mouth daily. Indications: EPILEPSY HYDROcodone/acetaminophen (NORCO) 5/325 mg tablet Take 1 Tab by mouth every 4 hours as needed for Pain hydrocortisone (CORTEF) 10 mg tablet Take with food. Take 2 in am and 1 at 4 pm. lamoTRIgine (LAMICTAL) 150 mg tablet Take 1 tablet by mouth twice daily. lamoTRIgine (LAMICTAL) 25 mg tablet Take 1 in am and 2 in pm x 4 weeks then 2 bid (Patient taking differently: Take 2 in the am and 2 at night) LORazepam (ATIVAN) 1 mg tablet Take 1 Tab by mouth every 12 hours as needed for Nausea, Vomiting or Other.... NAPROXEN SODIUM (ALEVE PO) Take by mouth. omeprazole DR(+) (PRILOSEC) 20 mg capsule Take 2 Caps by mouth daily. ondansetron (ZOFRAN) 8 mg tablet take 1 tab every 8 hours as needed for nausea PARoxetine (PAXIL) 40 mg tablet Take 1 Tab by mouth daily. senna/docusate (SENOKOT-S) 8.6/50 mg tablet Take 1 Tab by mouth twice daily. sildenafil(+) (VIAGRA) 50 mg tablet Take 1 Tab by mouth as Needed for Erectile dysfunction. zonisamide (ZONEGRAN) 100 mg capsule Take 5 capsules by mouth at bedtime daily. Objective: diazePAM (VALIUM) 10 mg tablet TAKE ONE TABLET BY MOUTH 30-60 MINUTES BEFORE MRI divalproex (DEPAKOTE ER) 500 mg ER tablet Take 1 tablet by mouth daily. Indications: EPILEPSY HYDROcodone/acetaminophen (NORCO) 5/325 mg tablet Take 1 Tab by mouth every 4 hours as needed for Pain hydrocortisone (CORTEF) 10 mg tablet Take with food. Take 2 in am and 1 at 4 pm. lamoTRIgine (LAMICTAL) 150 mg tablet Take 1 tablet by mouth twice daily. lamoTRIgine (LAMICTAL) 25 mg tablet Take 1 in am and 2 in pm x 4 weeks then 2 bid (Patient taking differently: Take 2 in the am and 2 at night) LORazepam (ATIVAN) 1 mg tablet Take 1 Tab by mouth every 12 hours as needed for Nausea, Vomiting or Other.... NAPROXEN SODIUM (ALEVE PO) Take by mouth. omeprazole DR(+) (PRILOSEC) 20 mg capsule Take 2 Caps by mouth daily. ondansetron (ZOFRAN) 8 mg tablet take 1 tab every 8 hours as needed for nausea PARoxetine (PAXIL) 40 mg tablet Take 1 Tab by mouth daily. senna/docusate (SENOKOT-S) 8.6/50 mg tablet Take 1 Tab by mouth twice daily. sildenafil(+) (VIAGRA) 50 mg tablet Take 1 Tab by mouth as Needed for Erectile dysfunction. zonisamide (ZONEGRAN) 100 mg capsule Take 5 capsules by mouth at bedtime daily. Review of Systems Neurological: Positive for seizures. All other systems reviewed and are negative. Objective: diazePAM (VALIUM) 10 mg tablet TAKE ONE TABLET BY MOUTH 30-60 MINUTES BEFORE MRI divalproex (DEPAKOTE ER) 500 mg ER tablet Take 1 tablet by mouth daily. Indications: EPILEPSY HYDROcodone/acetaminophen (NORCO) 5/325 mg tablet Take 1 Tab by mouth every 4 hours as needed for Pain hydrocortisone (CORTEF) 10 mg tablet Take with food. Take 2 in am and 1 at 4 pm. lamoTRIgine (LAMICTAL) 150 mg tablet Take 1 tablet by mouth twice daily. lamoTRIgine (LAMICTAL) 25 mg tablet Take 1 in am and 2 in pm x 4 weeks then 2 bid Levetiracetam 1,000 mg tab Take 3,000 mg by mouth twice daily. Indications: PARTIAL EPILEPSY TREATMENT ADJUNCT LORazepam (ATIVAN) 1 mg tablet Take 1 Tab by mouth every 12 hours as needed for Nausea, Vomiting or Other.... NAPROXEN SODIUM (ALEVE PO) Take by mouth. omeprazole DR(+) (PRILOSEC) 20 mg capsule Take 2 Caps by mouth daily. ondansetron (ZOFRAN) 8 mg tablet take 1 tab every 8 hours as needed for nausea PARoxetine (PAXIL) 40 mg tablet Take 1 Tab by mouth daily. senna/docusate (SENOKOT-S) 8.6/50 mg tablet Take 1 Tab by mouth twice daily. sildenafil(+) (VIAGRA) 50 mg tablet Take 1 Tab by mouth as Needed for Erectile dysfunction. zonisamide (ZONEGRAN) 100 mg capsule Take 5 capsules by mouth at bedtime daily. There were no vitals filed for this visit. There is no height or weight on file to calculate BMI. Physical Exam Head was normocephalic and atraumatic. He is alert, awake, and oriented times 3. Cranial nerves 2-12 were intact. Motor exam showed normal muscle bulk, tone , and strength except right iliopsoas which was 4/5. DTRs were 3 + in all 4 except bilateral tendons which were+1. Toes were downgoing. Cerebellar examination did not show any limb or gait ataxia. Sensory exam showed normal cold sensation in all 4 extremities. Gait was mildly wide based. There was intermittent positional tremor in rightupper extremity and right lower extremity VPA level from 07/06/2017: 50.6 Lamictal level from 07/06/2017: 7.8 Assessment and Plan: Impression: 1- Symptomatic localization-related epilepsy presenting with simple partial motor seizures. Not well controlled.One breakthrough seizure on September 03, 2017 after Zonisamide was started and Keppra was stopped. He wants to come off depakote. He thinks he was doing best when he was off Depakote. 2- Oligodendroglioma: F/u with Dr. Vail 3- Tremor: Resolved. It was side effect of Depakote. 4 Cognitive slowing: Stable. 5- Lorazepam use: The patient is on Lorazepam. He denies any sleep problem.he sleeps 8 hours a day. He denies any anxiety.We will decrease it to 0.5 mg in 2- 3 weeks after the AED changes are done. If there is worsening of anxiety they will resume to 1 mg q day. Plan: 1- Continue Zonisamide 500 mg qday 2- Stop Depakote 500 mg qday. We discussed about there risk of seizure recurrence. Dur to low dose of VPa, and previous side effects with it, it is reasonable to stop it. They agreed with the plan. 3- Continue Lamotrigine to 175 mg bid 5-RTC in 3 months 7- Decrease Ativan to 0.5 mg in 2-3 weeks. Visit start time:10:00 am Visit end time: 10:30 am MANAGEMENT AND PLAN During the visit I discussed my impression, recommended diagnostic studies, prognosis, risks and benefits of management, instructions for management, and importance of compliance. After a discussion, the patient agrees with the plan. Total time for this office visit was 30 minutes, of which 20 minutes was spent counseling the patient in regarding his seizures, medication change, and his complaints. The patient is instructed not to drive unless 6 months free of alteration of consciousness, not to work in close proximity of machines with moving parts, not to swim unsupervised or to work at high places. The patient is to shower ( without accumulation of water) instead of taking a bath if unsupervised. FOCUSED HEALTH MAINTENANCE: Smoking cessation counseling: No smoker Discussed patient's BMI with him. The body mass index is 41.14 kg/(m^2). and falls within the category of Obesity 3 (>40); Specialist visit only - will refer back to primary doctor for further care. FOLLOWUP PLAN I plan to see the patient back for follow-up in approximately 3-4 months. The patient is instructed to contact us if there is an exacerbation of the seizures or any side effects from the antiepileptic medications. Mitch Mcgrath MD Local Driver [facility] Department of Neurology in this encounter Plan of Treatment Date Type Specialty Care Team Description 07/27/2017 Procedure Pass Neurosurgery as of this encounter Visit Diagnoses Diagnosis 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
--- OUTSIDE RECORDS SUMMARY | 2017-11-10 15:51 | XMS REPORT | Clinical Summary ---
Author Author [facility] Organization [facility] Address Unknown Phone Unavailable Care Team Providers Care Collection Advisor Name Role Phone PCP Unavailable Source Comments Some departments are not documenting in the electronic medical record. If you do not see the information that you expected, contact Release of Information in the Health Information Management department at [phone] for further assistance in locating additional records.[facility] Allergies Active Allergy Reactions Severity Noted Date Comments Phenytoin Sodium Extended RASH High 06/04/2016 Current Medications Prescription Sig. Disp. Refills Start [...] as 10 Tab 0 10/02/20 Active mg tabletIndications: Needed for Erectile 15 Oligodendroglioma (HCC), dysfunction. Erectile dysfunction, unspecified erectile dysfunction type diazePAM (VALIUM) 10 mg TAKE ONE TABLET BY MOUTH 10 Tab 3 09/03/20 Active tablet 30-60 MINUTES BEFORE MRI 16 HYDROcodone/acetaminophen Take 1 Tab by mouth every 100 Tab 0 Active (NORCO) 5/325 mg tablet 4 hours as needed for 17 Pain ondansetron (ZOFRAN) 8 mg take 1 tab every 8 hours 60 Tab 5 12/30/19 Active tablet as needed for nausea 17 hydrocortisone (CORTEF) Take with food. Take 2 270 Tab 4 05/04/20 Active 10 mg tablet in am and 1 at 4 pm. 17 PARoxetine (PAXIL) 40 mg Take 1 Tab by mouth 90 Tab 3 05/04/20 Active tablet daily. 17 LORazepam (ATIVAN) 1 mg Take 1 Tab by mouth every 180 Tab 1 05/04/20 Active tablet 12 hours as needed for 17 Nausea, Vomiting or Other.... zonisamide (ZONEGRAN) 100 Take 5 capsules by mouth 150 capsule 11 Active mg capsuleIndications: at bedtime daily. 17 Localization-related focal epilepsy with simple partial seizures (HCC) lamoTRIgine (LAMICTAL) Take 1 tablet by mouth 60 tablet 11 10/20/19 Active 200 mg tabletIndications: twice daily. 18 Localization-related focal epilepsy with simple partial seizures (HCC) Levetiracetam 1,000 mg Take 3,000 mg by mouth 10/14/20 Discontin tabIndications: PARTIAL twice daily. Indications: 17 ued EPILEPSY TREATMENT PARTIAL EPILEPSY ADJUNCT TREATMENT ADJUNCT lamoTRIgine (LAMICTAL) Take 1 tablet by mouth 60 tablet 11 07/06/20 10/14/20 Discontin 150 mg tablet twice daily. 17 17 ued divalproex (DEPAKOTE ER) Take 1 tablet by mouth 60 tablet 5 07/06/20 10/14/20 Discontin 500 mg ER daily. Indications: 17 17 ued tabletIndications: EPILEPSY epilepsy zonisamide (ZONEGRAN) 100 Take 5 capsules by mouth 150 capsule 11 10/14/20 Discontin mg capsuleIndications: at bedtime daily. 17 17 ued Localization-related focal epilepsy with simple partial seizures (HCC) lamoTRIgine (LAMICTAL) 25 Take 1 in am and 2 in pm 120 tablet 1 10/14/20 Discontin mg tablet x 4 weeks then 2 bid 17 17 ued lamoTRIgine (LAMICTAL) Take 1 tablet by mouth 60 tablet 11 10/14/20 10/20/19 Discontin 200 mg tabletIndications: daily. 17 18 ued Localization-related focal epilepsy with simple partial seizures (HCC) Active Problems Problem Noted Date Insomnia 02/01/2015 [...] asked them to taper the hydrocortisone to 10/. RTC in one month and MRI in [...] SAH (subarachnoid hemorrhage) (HCC) 11/28/2013 Seizure disorder ([facility]) 11/28/2013 Overview: 01/18/14:On Keppra and Depakote now. [...] ventilation 11/28/2013 12/23/2013 Brain lesion 11/28/2013 12/23/2013 Encounters Date Type Specialty Care Team Description 10/20/2017 Refill Neurology Mitch Mcgrath MD Localization-related focal epilepsy with simple partial seizures (HCC) 10/14/2017 Office Visit Neurology Mitch Mcgrath MD Localization-related focal epilepsy with simple partial seizures (HCC) 09/04/2017 Refill Neurology Mitch Mcgrath MD 09/04/2017 Telephone Neurology Mitch Mcgrath MD Follow-up Phone Call from Last 3 Months Immunizations Name Dates Previously Given Next Due Flu Vaccine 07/04/2015, 09/12/2014 Quadrivalent=>3 Yo (Preservative Free) Family History Medical History Relation Name Comments Diabetes Father Heart Attack Father High Cholesterol Father Hypertension Father Other Father AVM rupture Relation Name Status Comments Father Alive Mother Alive Social History Tobacco Use Types Packs/Day Years Used Date Former Smoker Pipe, Cigars Smokeless Tobacco: Never Used Alcohol Use Drinks/Week oz/Week Comments Yes 18 Cans of 10.8 beer Sex Assigned at Date Recorded Not on file Last Filed Vital Signs Vital Sign Reading Time Taken Blood Pressure 133/88 10/14/2017 9:44 AM RELAY ADJUSTER Pulse 89 10/14/2017 9:44 AM RELAY ADJUSTER Temperature 36.8 C (98.2 F) 10/14/2017 9:44 AM RELAY ADJUSTER Respiratory Rate 16 07/27/2017 12:25 PM CDT Oxygen Saturation 92% 01/28/2017 2:27 PM CDT Inhaled Oxygen - - Concentration Weight 133.8 kg (295 lb) 10/14/2017 9:44 AM RELAY ADJUSTER Height 180.3 cm (5' 11") 10/14/2017 9:44 AM RELAY ADJUSTER Body Mass Index 41.14 10/14/2017 9:44 AM RELAY ADJUSTER Plan of Treatment Date Type Specialty Care Team Description 07/27/2017 Procedure Pass Neurosurgery Health Maintenance Due Date Last Done Comments PHYSICAL (COMPREHENSIVE) 1977 EXAM PERTUSSIS VACCINE 1981 TETANUS VACCINE 1987 INFLUENZA VACCINE 05/19/2017 07/04/2015, 09/12/2014 Results Not on filefrom Last 3 Months
--- OUTSIDE RECORDS SUMMARY | 2017-11-10 15:51 | XMS REPORT | Encounter Summary ---
Author Author [facility] Organization [facility] Address Unknown Phone Unavailable Care Team Providers Care Senior Business Architect Name Role Phone PCP Unavailable Reason for Visit * Reason Comments Follow-up Phone Call Encounter Details Date Type Department Care Team Description 09/04/2017 Telephone Comprehensive Epilepsy Mitch Mcgrath MD Follow-up Phone Call Center [address] [facility] [address] [place] [address] [place] [address] [phone] Social History Tobacco Use Types Packs/Day Years [...] impairment: No 10/02/2015 as of this encounter Miscellaneous Notes * Telephone Encounter - Hayley Bridges RN - 09/04/2017 4:53 PM PLUMBING MANAGER Spoke with pt and discussed increase in lamotrigine to 175 mg am 200 mg at hs for four week and then go to 200 mg bid. verbalized understanding. * Telephone Encounter - Hayley Bridges RN - 09/04/2017 1:46 PM PLUMBING MANAGER called to report pt had a seizure lasting 3-4 minutes described as arm, leg and head twitching, unable to respond during this. This occurred yesterday ( 09/03/17) Last seizure prior to this was May. No missed medications. Has had recent MRI which reported as stable. Last change in AEDs was in June: decreased Depakote to 500 mg qday, increased Lamotrigine to 175 mg bid and zonisamide 500 mg qday. Per the [facility] goal is to get off Depakote. Will discuss with Dr. Napoles (Dr. Mcgrath is out of office). in this encounter Plan of Treatment Date Type Specialty Care Team Description 07/27/2017 Procedure Pass Neurosurgery as of this encounter Visit Diagnoses Not on filein this encounter
--- OUTSIDE RECORDS SUMMARY | 2017-11-10 15:51 | XMS REPORT | Continuity of Care Document ---
Author Author [facility] Organization [facility] Address Unknown Phone Unavailable Allergies Active Description Code Type Severity Reaction Onset Reported/Identified Relationship to Patient Clinical Status Yes phenytoin [id number] Drug Allergy Unknown N/A 03/14/2014 Medications There is no data. Problems Date Dx Coded Attending Type Code Diagnosis Diagnosed By 11/28/2013 CURTIS YATES MD Ot 038.9 SEPTICEMIA NOS 11/28/2013 CURTIS YATES MD Ot 430 SUBARACHNOID HEMORRHAGE 11/28/2013 CURTIS YATES MD Ot 780.39 OTHER CONVULSIONS 11/28/2013 CURTIS YATES MD Ot 995.91 SEPSIS 12/22/2013 JARETH SIFUENTES MD Ot 191.8 MALIG IRENE BRAIN NEC 12/22/2013 JARETH SIFUENTES MD E Ot 300.00 ANXIETY STATE NOS 12/22/2013 JARETH SIFUENTES MD Ot 305.1 TOBACCO USE DISORDER 12/22/2013 JARETH SIFUENTES MD Ot 331.83 MILD COGNITIVE IMPAIRMENT, SO STATED 12/22/2013 JARETH SIFUENTES MD Ot 342.90 UNSPEC HEMIPLEGIA HEMIPARESIS UNSPEC S 12/22/2013 JARETH SIFUENTES MD Ot 536.8 STOMACH FUNCTION DIS NEC 12/22/2013 JARETH SIFUENTES MD Ot 564.09 OTHER CONSTIPATION 12/22/2013 JARETH SIFUENTES MD Ot 693.0 DRUG DERMATITIS NOS 12/22/2013 JARETH SIFUENTES MD E Ot 780.39 OTHER CONVULSIONS 12/22/2013 JARETH SIFUENTES MD Ot 781.2 ABNORMALITY OF GAIT 12/22/2013 JARETH SIFUENTES MD Ot 781.8 NEUROLOGIC NEGLECT SYNDROME 12/22/2013 JARETH SIFUENTES MD Ot E936.1 ADV EFF HYDANTOIN DERIV 12/22/2013 JARETH SIFUENTES MD Ot V57.89 REHABILITATION PROC NEC 03/14/2014 MUKUND WU DO Ot 965.09 POISONING-OPIATES NEC 03/14/2014 MUKUND WU DO Ot 966.3 POIS-ANTICONVUL NEC/NOS 03/14/2014 MUKUND WU DO Ot 969.4 POIS-BENZODIAZEPINE GELLER 03/14/2014 MUKUND WU DO Ot E849.0 ACCIDENT IN HOME 03/14/2014 MUKUND WU DO Ot E850.2 ACC POISON-OPIATES NEC 03/14/2014 MUKUND WU DO Ot E853.2 ACC POISN-BENZDIAZ TRANQ 03/14/2014 MUKUND WU DO Ot E855.0 ACC POISN-ANTICONVULSANT 04/13/2017 MUKUND WU DO Ot G40.909 EPILEPSY, UNSP, NOT INTRACTABLE, WITHOUT 04/13/2017 MUKUND WU DO Ot R56.9 UNSPECIFIED CONVULSIONS 04/13/2017 MUKUND WU DO Ot Z85.841 PERSONAL HISTORY OF MALIGNANT NEOPLASM O 04/13/2017 MUKUND WU DO Ot Z88.8 ALLERGY STATUS TO OTH DRUG/MEDS/BIOL SUB 04/15/2017 MUKUND WU DO Ot G40.909 EPILEPSY, UNSP, NOT INTRACTABLE, WITHOUT 04/15/2017 MUKUND WU DO Ot R56.9 UNSPECIFIED CONVULSIONS 04/15/2017 MUKUND WU DO Ot Z85.841 PERSONAL HISTORY OF MALIGNANT NEOPLASM O 04/15/2017 MUKUND WU DO Ot Z88.8 ALLERGY STATUS TO OTH DRUG/MEDS/BIOL SUB 04/20/2017 MUKUND WU DO Ot G40.909 EPILEPSY, UNSP, NOT INTRACTABLE, WITHOUT 04/20/2017 MUKUND WU DO Ot R56.9 UNSPECIFIED CONVULSIONS 04/20/2017 MUKUND WU DO Ot Z85.841 PERSONAL HISTORY OF MALIGNANT NEOPLASM O 04/20/2017 MUKUND WU DO Ot Z88.8 ALLERGY STATUS TO OTH DRUG/MEDS/BIOL SUB Procedures There is no data. Results Test Result Range Complete blood count (CBC) with automated white blood cell (WBC) differential - 04/13/17 18:54 Blood leukocytes automated count (number/volume) 10.6 10*3/uL 4.3-11.0 Blood erythrocytes automated count (number/volume) 5.12 10*6/uL 4.35-5.85 Venous blood hemoglobin measurement (mass/volume) 16.0 g/dL 13.3-17.7 Blood hematocrit (volume fraction) 47 % 40-54 Automated erythrocyte mean corpuscular volume 92 [foz_us] 80-99 Automated erythrocyte mean corpuscular hemoglobin (mass per erythrocyte) 31 pg 25-34 Automated erythrocyte mean corpuscular hemoglobin concentration measurement ( mass/volume) 34 g/dL 32-36 Automated erythrocyte distribution width ratio 12.0 % 10.0-14.5 Automated blood platelet count (count/volume) 259 10*3/uL 130-400 Automated blood platelet mean volume measurement 9.8 [foz_us] 7.4-10.4 Automated blood neutrophils/100 leukocytes 57 % 42-75 Automated blood lymphocytes/100 leukocytes 33 % 12-44 Blood monocytes/100 leukocytes 9 % 0-12 Automated blood eosinophils/100 leukocytes 1 % 0-10 Automated blood basophils/100 leukocytes 0 % 0-10 Blood neutrophils automated count (number/volume) 6.0 10*3 1.8-7.8 Blood lymphocytes automated count (number/volume) 3.5 10*3 1.0-4.0 Blood monocytes automated count (number/volume) 1.0 10*3 0.0-1.0 Automated eosinophil count 0.1 10*3/uL 0.0-0.3 Automated blood basophil count (count/volume) 0.0 10*3/uL 0.0-0.1 Capillary blood glucose measurement by glucometer (mass/volume) - 04/13/17 18: 54 Capillary blood glucose measurement by glucometer (mass/volume) 90 mg/dL 70-110 PT panel in platelet poor plasma by coagulation assay - 04/13/17 18:54 Prothrombin time (PT) in platelet poor plasma by coagulation assay 13.0 s 12.2-14.7 INR in platelet poor plasma or blood by coagulation assay 1.0 0.8-1.4 Activated partial thromboplastin time (aPTT) in platelet poor plasma bycoagulation assay - 04/13/17 18:54 Activated partial thromboplastin time (aPTT) in platelet poor plasma bycoagulation assay 26 s 24-35 Magnesium - 04/13/17 18:54 Magnesium 2.6 mg/dL 1.8-2.4 Serum or plasma creatine kinase measurement (enzymatic activity/volume) - 04/13 18:54 Serum or plasma creatine kinase measurement (enzymatic activity/volume) 343 U/L 30-200 Serum or plasma creatine kinase MB measurement (enzymatic activity/volume) - 18:54 Serum or plasma creatine kinase MB measurement (enzymatic activity/volume) 4.4 ng/mL <6.6 Serum or plasma troponin i.cardiac measurement (mass/volume) - 04/13/17 18:54 Serum or plasma troponin i.cardiac measurement (mass/volume) < ng/ mL <0.30 Serum or plasma thyrotropin measurement by detection limit <=0.05 miu/l (units/ volume) - 04/13/17 18:54 Serum or plasma thyrotropin measurement by detection limit <=0.05 miu/l (units/ volume) 1.80 u[iU]/mL 0.35-4.94 Valproic acid - 04/13/17 18:54 Valproic acid < ug/mL 50.0-100.0 Comprehensive metabolic panel - 04/13/17 18:54 Serum or plasma sodium measurement (moles/volume) 142 mmol/L 135-145 Serum or plasma potassium measurement (moles/volume) 4.1 mmol/L 3.6-5.0 Serum or plasma chloride measurement (moles/volume) 108 mmol/L 98-107 Carbon dioxide 17 mmol/L 21-32 Serum or plasma anion gap determination (moles/volume) 17 mmol/L 5-14 Serum or plasma urea nitrogen measurement (mass/volume) 12 mg/dL 7-18 Serum or plasma creatinine measurement (mass/volume) 1.01 mg/dL 0.60-1.30 Serum or plasma urea nitrogen/creatinine mass ratio 12 0 -20 Serum or plasma creatinine measurement with calculation of estimated glomerular filtration rate > NRG Serum or plasma glucose measurement (mass/volume) 96 mg/dL 70-105 Serum or plasma calcium measurement (mass/volume) 9.6 mg/dL 8.5-10.1 Serum or plasma total bilirubin measurement (mass/volume) 0.6 mg/dL 0.1-1.0 Serum or plasma alkaline phosphatase measurement (enzymatic activity/volume) 80 U/L 40-136 Serum or plasma aspartate aminotransferase measurement (enzymatic activity/ volume) 31 U/L 5-34 Serum or plasma alanine aminotransferase measurement (enzymatic activity/volume ) 66 U/L 0-55 Serum or plasma protein measurement (mass/volume) 7.6 g/dL 6.4-8.2 Serum or plasma albumin measurement (mass/volume) 4.8 g/dL 3.2-4.5 Encounters ACCT No. Visit Date/Time Discharge Status Pt. Type Provider Facility Loc./Unit Complaint [id number] 04/13/2017 18:51:00 04/13/2017 23:19:00 DIS Emergency MUKUND WU DO [facility] ER SEIZURE [id number] 03/14/2014 09:33:00 03/14/2014 11:31:00 DIS Emergency MUKUND WU DO [facility] ER OD [id number] 12/05/2013 15:09:00 12/22/2013 15:15:00 DIS Inpatient JARETH SIFUENTES MD [facility] IRF IRF TRANSFER FROM [id number] 11/27/2013 22:24:00 11/28/2013 00:40:00 DIS Emergency CURTIS YATES MD [facility] ER SEIZURE
--- OUTSIDE RECORDS SUMMARY | 2017-11-10 15:51 | XMS REPORT | Encounter Summary ---
Author Author [facility] Organization [facility] Address Unknown Phone Unavailable Care Team Providers Care Retail Leader Name Role Phone PCP Unavailable Encounter Details Date Type Department Care Team Description 07/27/2017 Procedure Pass [facility] - Neurosurgery 2ND FLOOR POD B [address] [place] [address] Social History Tobacco Use Types Packs/Day Years [...]
[2017-11-10] MEDS: LEVETIRACETAM 500 MG/5 ML (KEPPRA) VIAL IV ONE (16:05)
[2017-11-10 16:12] LABS: BASOPHILS % (AUTO) 0 % (0-10); EOSINOPHILS # (AUTO) 0.1 10^3/uL (0.0-0.3); EOSINOPHILS % (AUTO) 1 % (0-10); HEMATOCRIT 45 % (40-54); HEMOGLOBIN 15.5 G/DL (13.3-17.7); LYMPHOCYTES # (AUTO) 4.8 X 10^3 (1.0-4.0); LYMPHOCYTES % (AUTO) 41 % (12-44); MEAN CORPUSCULAR HEMOGLOBIN 32 PG (25-34); MEAN CORPUSCULAR HGB CONC 34 G/DL (32-36); MEAN CORPUSCULAR VOLUME 92 FL (80-99); MEAN PLATELET VOLUME 10.5 FL (7.4-10.4); MONOCYTES % (AUTO) 9 % (0-12); NEUTROPHILS # (AUTO) 5.8 X 10^3 (1.8-7.8); NEUTROPHILS % (AUTO) 49 % (42-75); PLATELET COUNT 285 10^3/uL (130-400); RED BLOOD COUNT 4.89 10^6/uL (4.35-5.85); WHITE BLOOD COUNT 11.8 10^3/uL (4.3-11.0)
--- NOTE | 2017-11-10 16:13 | Diagnostic Imaging Report ---
PROCEDURE: CT head without contrast. TECHNIQUE: Multiple contiguous axial images were obtained through the brain without the use of intravenous contrast. INDICATION: Seizure. History of brain tumor. COMPARISON: 04/13/2017. FINDINGS: Area of decreased attenuation with scattered bulky dystrophic calcifications are again identified within the convexity of the posterior left frontal lobe near the central gyrus. There is extension into the periventricular deep white matter of the posterior left cerebral hemisphere. Overall, findings are stable compared to 04/13/2017. There is no new loss of valera-white matter junction differentiation to suggest new acute territorial infarct. There are scattered and confluent areas of decreased attenuation within the periventricular and subcortical deep white matter, which may be on the basis of chronic small vessel ischemic changes. Ventricles and cortical sulci are otherwise normal in size and contour. There is no new mass effect or midline shift. There is no evidence of intra- or extra-axial intracranial hemorrhage. Bony calvarium demonstrates a keyanna hole posteriorly and superiorly on the left, but is otherwise intact. There is diminutive appearance with complete opacification of the right maxillary sinus. This is stable compared to prior exam. IMPRESSION: 1. No evidence of acute infarct or intracranial hemorrhage. 2. Redemonstration of irregular hypodensity with scattered dystrophic calcifications involving the posterior left cerebral hemisphere. Patient has known brain mass. Overall, appearance is stable compared to prior exam. Dictated by: Dictated on workstation # [id number]
[2017-11-10 16:17] LABS: INR 1.1 (0.8-1.4); PROTHROMBIN TIME PATIENT 14.3 SEC (12.2-14.7)
[2017-11-10 16:27] LABS: ALANINE AMINOTRANSFERASE 48 U/L (0-55); ALBUMIN 4.8 GM/DL (3.2-4.5); ALKALINE PHOSPHATASE 94 U/L (40-136); BILIRUBIN,TOTAL 0.5 MG/DL (0.1-1.0); BUN/CREATININE RATIO 13; CALCIUM 9.6 MG/DL (8.5-10.1); CARBON DIOXIDE 15 MMOL/L (21-32); CHLORIDE 110 MMOL/L (98-107); CREATININE SERUM 1.15 MG/DL (0.60-1.30); GFR ESTIMATED > 60; GLUCOSE 95 MG/DL (70-105); MAGNESIUM 2.6 MG/DL (1.8-2.4); POTASSIUM 4.2 MMOL/L (3.6-5.0); SODIUM 142 MMOL/L (135-145); TOTAL PROTEIN 7.4 GM/DL (6.4-8.2)
[2017-11-10 16:47] LABS: TSH (THYROID ANALYZER) 3.37 UIU/ML (0.35-4.94)
[2017-11-10 16:55] LABS: BILIRUBIN,URINE NEGATIVE (NEGATIVE); CLARITY,URINE CLEAR; COLOR,URINE YELLOW; GLUCOSE, URINE (UA) NEGATIVE (NEGATIVE); KETONES,URINE NEGATIVE (NEGATIVE); LEUKOCYTE ESTERASE ,URINE NEGATIVE (NEGATIVE); NITRITE,URINE NEGATIVE (NEGATIVE); PH,URINE 5 (5-9); PROTEIN,URINE 2+ (NEGATIVE); UROBILINOGEN,URINE NORMAL (NORMAL)
[2017-11-10 17:03] LABS: RBC,URINE 25-50 /HPF
[2017-11-10 17:04] LABS: AMORPHOUS SEDIMENT,UR FEW AMOR URATES /LPF
[2017-11-10 17:08] LABS: BENZODIAZEPINES SCREEN URINE POSITIVE (NEGATIVE)
[2017-11-10 17:09] LABS: AMPHETAMINE SCREEN, URINE NEGATIVE (NEGATIVE); BARBITURATE SCREEN URINE NEGATIVE (NEGATIVE); CANNABINOID SCREEN, URINE NEGATIVE (NEGATIVE); COCAINE SCREEN URINE NEGATIVE (NEGATIVE); METHADONE STAT NEGATIVE (NEGATIVE); METHAMPHETAMINE SCREEN URINE S NEGATIVE (NEGATIVE); OPIATE SCREEN URINE NEGATIVE (NEGATIVE); OXYCODONE STAT NEGATIVE (NEGATIVE); PROPOXYPHENE STAT NEGATIVE (NEGATIVE); TRICYCLIC ANTIDEPRESSANTS SCRE NEGATIVE (NEGATIVE)
[2017-11-10 17:10] VITALS: BP 118/74
--- NOTE | 2017-11-10 17:15 | Diagnostic Imaging Report ---
INDICATION: Seizure. COMPARISON: 04/13/2017. FINDINGS: Examination limited by portable technique and low lung volumes. Bilateral central vascular indistinctness. Cardiomegaly is present. No pneumothorax or pleural effusion. IMPRESSION: Central vascular indistinctness could relate to early pulmonary edema. However, this could be accentuated due to portable technique and low lung volumes. Dictated by: Dictated on workstation # [id number]
--- NOTE | 2017-11-10 18:55 | ED Neurological Problem ---
General Chief Complaint: Neurological Problems Stated Complaint: SEIZURE Nursing Triage Note: ARRIVED VIA EMS IN A POSTICITAL STAGE FROM A SEIZURE Nursing Sepsis Screen: No Definite Risk Source: family, EMS, old records History of Present Illness Date Seen by Provider: Nov 10, 2017 Time Seen by Provider: 15:45 Initial Comments PT ARRIVES VIA EMS FROM HOME WITH SEIZURE ACTIVITY--REPORTEDLY LASTED OVER 12 MINUTES PER --WITNESSED BY BROTHER PT HAS HISTORY OF BRAIN CANCER AND SEIZURES BRAIN TUMOR WAS DX IN 2013, AND HAD BRAIN BIOPSY AND HAD BEEN ON CHEMO, BUT COMPLETED TREATMENT 3 YEARS AGO. TUMOR HAS BEEN STABLE PT HAS HAD CONTINUED PROBLEMS WITH SEIZURES--LAST SEEN HERE 03/2017 WITH SEIZURES, AND STATES HE HAS HAD 3 SEIZURES SINCE THEN, WITH THE LAST ONE BEING IN SEPTEMBER SEIZURES HAVE NEVER LASTED THIS LONG STATES THAT PT HAS HAD MULTIPLE MEDICATION ADJUSTMENTS SINCE LAST MARCH, TO TRY TO CONTROL SEIZURES. PT HAS HAD REACTION TO DILANTIN, AND NOT ABLE TO TOLERATE DEPAKOTE DUE TO SIDE EFFECTS, SO IS CURRENTLY ON LAMICTAL WITH RECENT DOSE INCREASE IN SEPTEMBER. AND ALSO RECENTLY STARTED ON A NEW MEDICATION, AND KEPPRA WAS DC'D. SEIZURE ONSET WAS WITNESSED BY BROTHER, AND STARTED APPROXIMATELY 30 MINUTES AGO OR MORE EMS STATE THAT VERY BRIEFLY HE DID REGAIN CONSCIOUSNESS, FOR A MINUTE OR SO, THEN SEIZURE ACTIVITY RETURNED. NO INJURY DUE TO SEIZURE NO FEVER OR RECENT ILLNESS. ACCUCHECK 113 BY EMS EMS REPORT THAT PT APPEARED POST ICTAL, WOKE UP BRIEFLY THEN BEGAN HAVING SEIZURE AGAIN--STARTS WITH TWITCHING TO RIGHT EYE, LIP AND RIGHT NECK, WELL "STUTTERING" --MAKING UNINTELLIGIBLE GUTTERAL NOISES --NORMAL FOR PT WHEN HE HAS SEIZURES. PT DOES ADDITIONALLY HAVE HISTORY OF SUBARACHNOID BLEED PCP: DR. CARPENTER NEURO: [facility] Allergies and Home Medications Allergies Coded Allergies: phenytoin (Unverified Allergy, Unknown, 03/14/14) Home Medications Acetaminophen 325 Mg Tab, 650 MG PO Q4H PRN for PAIN for 7 Days Prescribed by: MARI HAMILTON on 12/22/13 1444 Calcium Carbonate 500 Mg Tab.chew, 500-1,000 MG PO Q3H PRN for HEARTBURN, #1 Prescribed by: MARI HAMILTON on 12/22/13 1444 Cetirizine Hcl 10 Mg Tablet, 10 MG PO DAILY, (Reported) Dexamethasone 4 Mg Tab, 16 MG PO DAILY@0700, #1 Prescribed by: AMRI HAMILTON on 12/22/13 1444 Hydrocortisone 30 Gm Cr, 1 APPLIC TOP TID for 1 Days Prescribed by: MARI HAMILTON on 12/22/13 1444 Hydromorphone Hcl 4 Mg Tab, 4 MG PO Q4H PRN for PAIN, #30 Prescribed by: MARI HAMILTON on 12/22/13 1444 Hydroxyzine Pamoate 25 Mg Capsule, 25 MG PO Q8HR PRN for ITCHING, #1 Prescribed by: MARI HAMILTON on 12/22/13 1444 Levetiracetam 100 Mg/1 Ml Solution, 2,000 MG PO BID PRN for SEIZURE ACTIVITY for 1 Days Prescribed by: MARI HAMILTON on 12/22/13 1541 Lorazepam 1 Mg Tab, 1 MG PO BID for 30 Days, Ref 0 Prescribed by: MARI HAMILTON on 12/22/13 144 Multivitamin 1 Each Tablet, 1 TAB PO DAILY, (Reported) Omeprazole 20 Mg Capsule.dr, 40 MG PO DAILY, (Reported) TAKES 2 (20MG) CAPSULES DAILY Oxycodone Hcl 5 Mg Tab, 15 MG PO Q3H PRN for PAIN, #60 Ref 1 Prescribed by: MARI HAMILTON on 12/22/13 1444 Oxycodone Hcl 40 Mg Tab, 40 MG PO Q12HR for 28 Days, Ref 0 Prescribed by: MARI HAMILTON on 12/22/13 144 Phenytoin 100 Mg/4 Ml Oral.susp, 150 MG PO BID for 60 Days, Ref 1 Prescribed by: MARI HAMILTON on 12/22/13 144 Senna 187 Mg Tab, 25.8 MG PO BID for 60 Days, Ref 1 Prescribed by: MARI HAMILTON on 12/22/13 144 Constitutional: no symptoms reported Eyes: No Symptoms Reported Ears, Nose, Mouth, Throat: no symptoms reported Respiratory: no symptoms reported Cardiovascular: no symptoms reported Gastrointestinal: no symptoms reported Genitourinary: no symptoms reported Musculoskeletal: no symptoms reported Skin: no symptoms reported Psychiatric/Neurological: See HPI Endocrine: No Symptoms Reported Hematologic/Lymphatic: No Symptoms Reported Past Okeftcv-Zkvykc-Dxtsie Hx Patient Social History Alcohol Use: Denies Use Recreational Drug Use: No Smoking Status: Current Everyday Smoker Type Used: Cigarettes Recent Foreign Travel: No Contact w/Someone Who Travel: No Recent Infectious Disease Expo: No Surgeries History of Surgeries: Yes (BACK SURGERY; BRAIN BIOPSY) Surgeries: Neurological, Orthopedic Respiratory History of Respiratory Disorde: No Cardiovascular History of Cardiac Disorders: No Neurological History of Neurological Disord: Yes (TREMORS) Neurological Disorders: Brain Tumor, Seizure Disorder Genitourinary History of Genitourinary Disor: No Gastrointestinal History of Gastrointestinal Di: Yes Gastrointestinal Disorders: Gastroesophageal Reflux Musculoskeletal History of Musculoskeletal Dis: Yes (JUVENILE RHEUMATOID ARTHRITIS) Musculoskeletal Disorders: Degenerate Disk Disease, Rheumatoid Arthritis, Chronic Back Pain Endocrine History of Endocrine Disorders: No HEENT History of HEENT Disorders: No Cancer History of Cancer: Yes Cancer: Brain Did You Recieve Any Treatments: Yes (BRAIN BIOPSY AND CHEMO) Type of Tx Receive: Chemotherapy Psychosocial History of Psychiatric Problem: No Integumentary History of Skin or Integumenta: No Blood Transfusions History of Blood Disorders: No Family Medical History Family Medial History: Family history: Diabetes mellitus 03 FATHER Family history: Hypertension 03 FATHER Myocardial infarction 03 FATHER Physical Exam Vital Signs Capillary Refill : Less Than 3 Seconds General Appearance: obese, other (LETHARGIC, DIAPHORETIC, SOME TWITCHING OF RIGHT EYE, LIP, AND RIGHT SIDE OF NECK WITH GUTTERAL NOISES) HEENT: PERRL/EOMI Neck: normal inspection Respiratory: normal breath sounds, no respiratory distress, no accessory muscle use Cardiovascular: no murmur, tachycardia Gastrointestinal: non tender, soft Extremities: no pedal edema, normal capillary refill Neurologic/Psychiatric: other (PT NOT TALKING OR FOLLOWING COMMANDS, APPEARS TO BE HAVING SEIZURE ACTIVITY) Skin: diaphoresis, pallor Progress/Results/Core Measures Results/Orders Lab Results Laboratory Tests Test 11/10/17 15:50 11/10/17 16:45 Range/Units White Blood Count 11.8 H 4.3-11.0 10^3/uL Red Blood Count 4.89 4.35-5.85 10^6/uL Hemoglobin 15.5 13.3-17.7 G/DL Hematocrit 45 40-54 % Mean Corpuscular Volume 92 80-99 FL Mean Corpuscular Hemoglobin 32 25-34 PG Mean Corpuscular Hemoglobin Concent 34 32-36 G/DL Red Cell Distribution Width 12.0 10.0-14.5 % Platelet Count 285 130-400 10^3/uL Mean Platelet Volume 10.5 H 7.4-10.4 FL Neutrophils (%) (Auto) 49 42-75 % Lymphocytes (%) (Auto) 41 12-44 % Monocytes (%) (Auto) 9 0-12 % Eosinophils (%) (Auto) 1 0-10 % Basophils (%) (Auto) 0 0-10 % Neutrophils # (Auto) 5.8 1.8-7.8 X 10^3 Lymphocytes # (Auto) 4.8 H 1.0-4.0 X 10^3 Monocytes # (Auto) 1.0 0.0-1.0 X 10^3 Eosinophils # (Auto) 0.1 0.0-0.3 10^3/uL Basophils # (Auto) 0.0 0.0-0.1 10^3/uL Prothrombin Time 14.3 12.2-14.7 SEC INR Comment 1.1 0.8-1.4 Activated Partial Thromboplast Time 26 24-35 SEC Sodium Level 142 135-145 MMOL/L Potassium Level 4.2 3.6-5.0 MMOL/L Chloride Level 110 H 98-107 MMOL/L Carbon Dioxide Level 15 L 21-32 MMOL/L Anion Gap 17 H 5-14 MMOL/L Blood Urea Nitrogen 15 7-18 MG/DL Creatinine 1.15 0.60-1.30 MG/DL Estimat Glomerular Filtration Rate > 60 BUN/Creatinine Ratio 13 Glucose Level 95 70-105 MG/DL Calcium Level 9.6 8.5-10.1 MG/DL Magnesium Level 2.6 H 1.8-2.4 MG/DL Total Bilirubin 0.5 0.1-1.0 MG/DL Aspartate Amino Transf (AST/SGOT) 26 5-34 U/L Alanine Aminotransferase (ALT/SGPT) 48 0-55 U/L Alkaline Phosphatase 94 40-136 U/L Troponin I < 0.30 <0.30 NG/ML Total Protein 7.4 6.4-8.2 GM/DL Albumin 4.8 H 3.2-4.5 GM/DL TSH Dunn Testing 3.37 0.35-4.94 UIU/ML Urine Color YELLOW Urine Clarity CLEAR Urine pH 5 5-9 Urine Specific [place] 1.025 H 1.016-1.022 Urine Protein 2+ H NEGATIVE Urine Glucose (UA) NEGATIVE NEGATIVE Urine Ketones NEGATIVE NEGATIVE Urine Nitrite NEGATIVE NEGATIVE Urine Bilirubin NEGATIVE NEGATIVE Urine Urobilinogen NORMAL NORMAL MG/DL Urine Leukocyte Esterase NEGATIVE NEGATIVE Urine RBC (Auto) 2+ H NEGATIVE Urine RBC 25-50 H /HPF Urine WBC NONE /HPF Urine Crystals PRESENT H /LPF Urine Amorphous Sediment FEW GUERRERO URATES H /LPF Urine Bacteria NONE /HPF Urine Casts NONE /LPF Urine Mucus NEGATIVE /LPF Urine Culture Indicated NO Urine Opiates Screen NEGATIVE NEGATIVE Urine Oxycodone Screen NEGATIVE NEGATIVE Urine Methadone Screen NEGATIVE NEGATIVE Urine Propoxyphene Screen NEGATIVE NEGATIVE Urine Barbiturates Screen NEGATIVE NEGATIVE Ur Tricyclic Antidepressants Screen NEGATIVE NEGATIVE Urine Phencyclidine Screen NEGATIVE NEGATIVE Urine Amphetamines Screen NEGATIVE NEGATIVE Urine Methamphetamines Screen NEGATIVE NEGATIVE Urine Benzodiazepines Screen POSITIVE H NEGATIVE Urine Cocaine Screen NEGATIVE NEGATIVE Urine Cannabinoids Screen NEGATIVE NEGATIVE My Orders Orders - MUKUND WU DO Lorazepam Injection (Ativan Injection) (11/10/17 15:48) Ct Head Wo (11/10/17 15:52) Ekg Tracing (11/10/17 15:52) Lorazepam Injection (Ativan Injection) (11/10/17 15:53) Levetiracetam Injection (Keppra Injectio (11/10/17 15:54) Ns (Ivpb) (Sodium Chloride 0.9% Ivpb Bag (11/10/17 15:54) D5w 100 Ml Ivpb (Dextrose 5% Water Iv So (11/10/17 15:55) Lorazepam Injection (Ativan Injection) (11/10/17 16:00) Saline Lock/Iv-Start (11/10/17 16:06) O2 (11/10/17 16:06) Monitor-Rhythm Ecg Trace Only (11/10/17 16:06) Cbc With Automated Diff (11/10/17 16:06) Comprehensive Metabolic Panel (11/10/17 16:06) Drug Screen Stat (Urine) (11/10/17 16:06) Magnesium (11/10/17 16:06) Protime With Inr (11/10/17 16:06) Partial Thromboplastin Time (11/10/17 16:06) Thyroid Analyzer (11/10/17 16:06) Troponin I (11/10/17 16:06) Ua Culture If Indicated (11/10/17 16:06) Catheter(Urinary) Insert & Ass 03,15 (11/10/17 16:06) Ng Tube Insert & Assessment (11/10/17 16:06) Ns Iv 1000 Ml (Sodium Chloride 0.9%) (11/10/17 16:10) Chest 1 View, Ap/Pa Only (11/10/17 ) Iv Push Laboratory Chief Ed (11/10/17 ) Medications Given in ED Vital Signs/I&O Blood Pressure Mean: 109 Progress Note : Progress Note SEIZURES APPEAR TO HAVE STOPPED AT TIME OF TRANSFER PT RECEIVED ATIVAN 6 MG AND STARTED ON KEPPRA ECG Initial ECG Impression Date: Nov 10, 2017 Initial ECG Impression Time: 16:25 Initial ECG Rate: 110 Initial ECG Rhythm: S.Tach Diagnostic Imaging Comments CXR--NO ACUTE PROCESS CT HEAD--NO ACUTE PROCESS, CHRONIC APPEARING CHANGES AND UNCHANGED FROM PREVIOUS PER RADIOLOGIST REPORTS Reviewed: Reviewed by Me Critical Care Note Critical Care Total Time (minutes) 45 Departure Communication (Admissions) Progress Notes 1550--DR. CORNELL HERE, HAS DISCUSSED WITH DR. CARPENTER 1604--CALLED . SPOKE WITH JON, POULTRY VACCINATOR. WILL CALL BACK 1616--KU CALLED [facility] PT TO BE DIRECT ADMITTED TO [facility] ICU, AND HAS BEEN ACCEPTED BY DR. HELTON FROM [facility] ICU. ADVISES TO HOLD INTUBATION AND GIVE PROPOFOL FOR SEDATION. Impression Impression: Primary Impression: Status epilepticus Additional Impression: Hx of brain cancer Disposition: 02 XFER SHT-TRM HOSP Condition: Stable Transfer Time Spoke to Accepting Phy: 16:16 Transfer Progress Notes ABOVE Transfer Facility: Method of Transfer: Air ([facility]) Departure-Patient Inst. Referrals: CHALO CARPENTER MD (PCP/Family) Primary Care Physician MUKUND WU DO Nov 10, 2017 18:55
--- NOTE | 2017-11-17 06:52 | Physician Query-Final Dx ---
DARIO TRAYLOR 11/17/17 0652: Clinic Account Progress/Dx Physician Query: Please give diagnosis Date of Service Nov 10, 2017 at 15:45 Progress Note: Dario [phone] MUKUND WU DO 12/05/17 0651: Clinic Account Progress/Dx DIAGNOSIS: Diagnosis STATUS EPILEPTICUS HX BRAIN CANCER DARIO TRAYLOR Nov 17, 2017 06:52 MUKUND WU DO Dec 05, 2017 06:51
== END | disposition short-term general hospital (02) ==
LOC: EDUNIT# 15:44 → ER 15:45
DX: G40.901 Epilepsy, unspecified, not intractable, with status epilepticus (principal); F17.210 Nicotine dependence, cigarettes, uncomplicated; Z85.841 Personal history of malignant neoplasm of brain
CPT/HCPCS: 36415; 51702; 70450; 71045; 80053; 80306; 81000; 83735; 84443; 84484; 85025; 85610; 85730; 93005; 93041; 96374; 96375

== ENCOUNTER 2023-04-19 05:55 | Emergency (ER) | payer BC, MEDICARE ==
[~2023-04-19] VITALS: Ht 180 cm; Wt 137.0 kg
[~2023-04-19 05:55] MED LIST changes: -D5W 100 ML IVPB 100 ML IV ONE; -LORazepam INJ 2 MG/ML (ATIVAN) VIAL ONE; -NS (IVPB) 50 ML ONE; -NS IV 1000 ML 1,000 ML ONE
[2023-04-19] MEDS ORDERED: NS IV 1000 ML 1,000 ML IV STA (06:14)
[2023-04-19] MEDS ORDERED: KETOROLAC 30 MG/ML VIAL IVP STA (06:14)
[2023-04-19] MEDS ORDERED: fentaNYL INJ 100 MCG/2 ML AMP IVP STA ×2 (06:14→07:48)
[2023-04-19 06:20] LABS: BASOPHILS % (AUTO) 0 % (0-10); EOSINOPHILS # (AUTO) 0.2 10^3/uL (0.0-0.3); EOSINOPHILS % (AUTO) 2 % (0-10); HEMATOCRIT 46 % (40-54); HEMOGLOBIN 15.7 g/dL (13.3-17.7); LYMPHOCYTES # (AUTO) 2.3 10^3/uL (1.0-4.0); LYMPHOCYTES % (AUTO) 20 % (12-44); MEAN CORPUSCULAR HEMOGLOBIN 32 pg (25-34); MEAN CORPUSCULAR HGB CONC 34 g/dL (32-36); MEAN CORPUSCULAR VOLUME 96 fL (80-99); MEAN PLATELET VOLUME 10.7 fL (9.0-12.2); MONOCYTES # (AUTO) 1.1 10^3/uL (0.0-1.0); MONOCYTES % (AUTO) 10 % (0-12); NEUTROPHILS # (AUTO) 7.6 10^3/uL (1.8-7.8); NEUTROPHILS % (AUTO) 67 % (42-75); PLATELET COUNT 236 10^3/uL (130-400); WHITE BLOOD COUNT 11.2 10^3/uL (4.3-11.0)
[2023-04-19 06:21] LABS: BILIRUBIN,URINE NEGATIVE (NEGATIVE); CLARITY,URINE CLEAR; COLOR,URINE YELLOW; GLUCOSE, URINE (UA) NEGATIVE (NEGATIVE); KETONES,URINE NEGATIVE (NEGATIVE); LEUKOCYTE ESTERASE ,URINE NEGATIVE (NEGATIVE); NITRITE,URINE NEGATIVE (NEGATIVE); PROTEIN,URINE NEGATIVE (NEGATIVE)
--- NOTE | 2023-04-19 06:21 | ED GU-Male ---
General Chief Complaint: - Reproductive Stated Complaint: URINARY PX Nursing Triage Note: Pt amnulatory to the room. Pt stated that has pain and frequency urinating, w/ pain on r flank. PT has hx of UTIs, and feels the same. Pt was in the bathroom prior to coming to the room, stated couldnt wait to give a sample. Source: patient Exam Limitations: no limitations History of Present Illness Date Seen by Provider: Apr 19, 2023 Time Seen by Provider: 06:01 Initial Comments Here with report of difficulty and frequency with urination since yesterday. Does have history of occasional urinary tract infections. States that it started in the suprapubic and groin area and now has moved up towards the right kidney. He has had very similar symptoms previously although the movement towards the right kidney is new. Does have history of seizure disorder status post brain cancer and chemo and radiation therapy almost 10 years ago. That has been okay. Denies nausea or vomiting. Denies fever or chills. Timing/Duration: yesterday, getting worse Severity/Quality: moderate Location: suprapubic Radiation: right flank Activities at Onset: none Modifying Factors: Improves With Resting Associated Symptoms: abdominal pain, dysuria; No fever/chills, No lower back pain, No nausea/vomiting; urinary frequency Allergies and Home Medications Allergies Coded Allergies: phenytoin (Unverified Allergy, Unknown, 03/14/14) Patient Home Medication List Home Medication List Reviewed: Yes Acetaminophen (Tylenol Tablet) 325 Mg Tab, 650 MG PO Q4H PRN for PAIN Prescribed by: MARI HAMILTON on 12/22/13 1444 Calcium Carbonate (Antacid Chewable Tablet) 500 Mg Tab.chew, 500-1,000 MG PO Q3H PRN for HEARTBURN Prescribed by: MARI HAMILTON on 12/22/13 1444 Cephalexin (Cephalexin) 500 Mg Tablet, 500 MG PO BID Prescribed by: KORTNEY BAUM on 04/19/23 0808 Cetirizine Hcl (Cetirizine Hcl) 10 Mg Tablet, 10 MG PO DAILY, (Reported) Entered as Reported by: TRISTIN ALCOCER on 12/05/13 1551 Dexamethasone (Decadron Tab) 4 Mg Tab, 16 MG PO DAILY@0700 Prescribed by: MARI HAMILTON on 12/22/13 1444 Hydrocodone/Acetaminophen (Hydrocodone-Acetamin 5-325 mg) 5 Mg-325 Mg Tablet, 1 TAB PO Q6H PRN for PAIN-MODERATE (5-7) Prescribed by: KORTNEY BAUM on 04/19/23 0809 Hydrocortisone (Hydrocortisone Cr) 30 Gm Cr, 1 APPLIC TOP TID Prescribed by: MARI HAMILTON on 12/22/13 1444 Hydromorphone Hcl (Dilaudid) 4 Mg Tab, 4 MG PO Q4H PRN for PAIN Prescribed by: MARI HAMILTON on 12/22/13 1444 Hydroxyzine Pamoate (Vistaril) 25 Mg Capsule, 25 MG PO Q8HR PRN for ITCHING Prescribed by: MARI HAMILTON on 12/22/13 1444 Levetiracetam (Levetiracetam Oral Solution) 100 Mg/1 Ml Solution, 2,000 MG PO BID PRN for SEIZURE ACTIVITY Prescribed by: MARI HAMILTON on 12/22/13 1541 Lorazepam (Ativan) 1 Mg Tab, 1 MG PO BID Prescribed by: MARI HAMILTON on 12/22/13 1444 Multivitamin (Multi Vitamin Daily) 1 Each Tablet, 1 TAB PO DAILY, (Reported) Entered as Reported by: TRISTIN ALCOCER on 12/05/13 1552 Omeprazole (Omeprazole) 20 Mg Capsule.dr, 40 MG PO DAILY, (Reported) Entered as Reported by: SHILO LOZOYA on 11/27/13 2308 Ondansetron (Ondansetron Odt) 4 Mg Tab.rapdis, 4 MG PO Q6H PRN for NAUSEA/VOMI TING Prescribed by: KORTNEY BAUM on 04/19/23 0808 Oxycodone Hcl (Oxycontin IR 5mg) 5 Mg Tab, 15 MG PO Q3H PRN for PAIN Prescribed by: MARI HAMILTON on 12/22/13 1444 Oxycodone Hcl (Oxycontin Cr) 40 Mg Tab, 40 MG PO Q12HR Prescribed by: MARI HAMILTON on 12/22/13 1444 Phenytoin (Dilantin Susp 4 Ml) 100 Mg/4 Ml Oral.susp, 150 MG PO BID Prescribed by: MARI HAMILTON on 12/22/13 1444 Senna (Senokot) 187 Mg Tab, 25.8 MG PO BID Prescribed by: MARI HAMILTON on 12/22/13 1444 Tamsulosin HCl (Flomax) 0.4 Mg Cap, 0.4 MG PO DAILY Prescribed by: KORTNEY BAUM on 04/19/23 0808 Review of Systems Review of Systems Constitutional: see HPI; No chills, No fever EENTM: no symptoms reported Respiratory: No cough, No short of breath Cardiovascular: No chest pain, No edema Gastrointestinal: see HPI Genitourinary: see HPI Musculoskeletal: back pain (Right flank); No muscle pain Skin: no symptoms reported Past Faqbshu-Zcmorn-Hftfhi Hx Patient Social History Tobacco Use?: No Use of E-Cig and/or Vaping dev: No Substance use?: No Alcohol Use?: No Pt feels they are or have been: No Past Medical History Surgery/Hospitalization HX: UTIS, Brain cancer (2013), tonsillectomy, appy, back sx. Surgeries: Yes (BACK SURGERY; BRAIN BIOPSY) Neurological, Orthopedic Respiratory: No Cardiac: No Neurological: Yes (TREMORS) Brain Tumor, Seizure Disorder Genitourinary: No Gastrointestinal: Yes Gastroesophageal Reflux Musculoskeletal: Yes (JUVENILE RHEUMATOID ARTHRITIS) Degenerate Disk Disease, Rheumatoid Arthritis, Chronic Back Pain Endocrine: No HEENT: No Cancer: Yes Brain Did You Recieve Any Treatments: Yes What Type of Treatment Did You: Chemotherapy Psychosocial: No Integumentary: No Blood Disorders: No Family Medical History Reviewed Nursing Family Hx Family history: Diabetes mellitus 03 FATHER Family history: Hypertension 03 FATHER Myocardial infarction 03 FATHER Physical Exam Vital Signs Vital Signs - First Documented 04/19/23 06:05 Temp 36.9 Pulse 87 Resp 18 B/P (MAP) 150/89 (109) Pulse Ox 94 Capillary Refill : Less Than 3 Seconds Height, Weight, BMI Height: 6'0" Weight: 250lbs. oz. [id number]; 42.00 BMI Method:Stated General Appearance: WD/WN, no apparent distress Neck: full range of motion, supple Cardiovascular: regular rate, rhythm, no murmur Respiratory: lungs clear, normal breath sounds Gastrointestinal: soft; No guarding, No rebound; tenderness (Mild suprapubic region) Back: normal inspection, CVA tenderness (R); No CVA tenderness (L) Extremities: non-tender, normal inspection Neurologic/Psychiatric: alert, oriented x 3 Skin: normal color, warm/dry Progress/Results/Core Measures Suspected Sepsis SIRS Temperature: Pulse: 87 Respiratory Rate: 18 Laboratory Tests 04/19/23 06:05: White Blood Count 11.2H Blood Pressure 150 /89 Mean: 109 Laboratory Tests 04/19/23 06:05: Creatinine 1.39H, Platelet Count 236, Total Bilirubin 0.5 Results/Orders Lab Results Laboratory Tests Test 04/19/23 06:05 04/19/23 06:14 Range/Units White Blood Count 11.2 H 4.3-11.0 10^3/uL Red Blood Count 4.84 4.30-5.52 10^6/uL Hemoglobin 15.7 13.3-17.7 g/dL Hematocrit 46 40-54 % Mean Corpuscular Volume 96 80-99 fL Mean Corpuscular Hemoglobin 32 25-34 pg Mean Corpuscular Hemoglobin Concent 34 32-36 g/dL Red Cell Distribution Width 11.9 10.0-14.5 % Platelet Count 236 130-400 10^3/uL Mean Platelet Volume 10.7 9.0-12.2 fL Immature Granulocyte % (Auto) 0 % Neutrophils (%) (Auto) 67 42-75 % Lymphocytes (%) (Auto) 20 12-44 % Monocytes (%) (Auto) 10 0-12 % Eosinophils (%) (Auto) 2 0-10 % Basophils (%) (Auto) 0 0-10 % Neutrophils # (Auto) 7.6 1.8-7.8 10^3/uL Lymphocytes # (Auto) 2.3 1.0-4.0 10^3/uL Monocytes # (Auto) 1.1 H 0.0-1.0 10^3/uL Eosinophils # (Auto) 0.2 0.0-0.3 10^3/uL Basophils # (Auto) 0.0 0.0-0.1 10^3/uL Immature Granulocyte # (Auto) 0.0 0.0-0.1 10^3/uL Sodium Level 139 135-145 MMOL/L Potassium Level 3.9 3.6-5.0 MMOL/L Chloride Level 110 H 98-107 MMOL/L Carbon Dioxide Level 19 L 21-32 MMOL/L Anion Gap 10 5-14 MMOL/L Blood Urea Nitrogen 14 7-18 MG/DL Creatinine 1.39 H 0.60-1.30 MG/DL Estimat Glomerular Filtration Rate 61 BUN/Creatinine Ratio 10 Glucose Level 99 70-105 MG/DL Calcium Level 9.7 8.5-10.1 MG/DL Corrected Calcium 9.3 8.5-10.1 MG/DL Total Bilirubin 0.5 0.1-1.0 MG/DL Aspartate Amino Transf (AST/SGOT) 22 5-34 U/L Alanine Aminotransferase (ALT/SGPT) 33 0-55 U/L Alkaline Phosphatase 102 40-136 U/L Total Protein 6.9 6.4-8.2 GM/DL Albumin 4.5 3.2-4.5 GM/DL Urine Color YELLOW Urine Clarity CLEAR Urine pH 6.0 5-9 Urine Specific [place] >=1.030 1.016-1.022 Urine Protein NEGATIVE NEGATIVE Urine Glucose (UA) NEGATIVE NEGATIVE Urine Ketones NEGATIVE NEGATIVE Urine Nitrite NEGATIVE NEGATIVE Urine Bilirubin NEGATIVE NEGATIVE Urine Urobilinogen 0.2 < = 1.0 MG/DL Urine Leukocyte Esterase NEGATIVE NEGATIVE Urine RBC (Auto) 2+ H NEGATIVE Urine RBC 10-25 H /HPF Urine WBC NONE /HPF Urine Crystals NONE /LPF Urine Bacteria TRACE /HPF Urine Casts NONE /LPF Urine Mucus SMALL H /LPF Urine Culture Indicated NO My Orders Orders - KORTNEY BAUM MD Cbc With Automated Diff (04/19/23 06:14) Comprehensive Metabolic Panel (04/19/23 06:14) Ua Culture If Indicated (04/19/23 06:14) Ns Iv 1000 Ml (Sodium Chloride 0.9%) (04/19/23 06:14) Ed Iv/Invasive Line Start (04/19/23 06:14) Fentanyl Inj (Sublimaze Injection) (04/19/23 06:14) Ketorolac Injection (Toradol Injection) (04/19/23 06:14) Ct Abd/Pelvis Wo(Kidney Stone) (04/19/23 06:42) Fentanyl Inj (Sublimaze Injection) (04/19/23 07:48) Hydrocodone/Apap 5/325 Tablet (Lortab 5 (04/19/23 08:00) Medications Given in ED Current Medications Medications Dose Ordered Sig/Lawson Route Start Time Stop Time Status Last Admin Dose Admin Acetaminophen/ Hydrocodone Bitart 1 ea ONCE ONCE PO 04/19/23 08:00 04/19/23 08:01 DC 04/19/23 07:54 1 EA Vital Signs/I&O 04/19/23 04/19/23 04/19/23 06:05 07:54 07:54 Temp 36.9 36.9 36.9 Pulse 87 Resp 18 B/P (MAP) 150/89 (109) Pulse Ox 94 Capillary Refill : Less Than 3 Seconds Blood Pressure Mean: 109 Progress Note : Progress Note Seen and evaluated. IV, labs including CBC, CMP and UA ordered. Normal saline 1 L bolus, Toradol 30 mg IV and fentanyl 50 mcg IV for pain and hydration. Monitor patient. Differential diagnosis includes UTI, ureteral stone 0644: UA does show blood without findings of urinary tract infection. CBC and CMP grossly normal although creatinine slightly elevated. He will need CT abdomen pelvis kidney stone protocol given the blood in the urine. His pain is improved now after medicines and he feels much better. I did discuss CT with he and his and they agree. Monitor patient. 0745: CT reviewed by me and there is obvious small stone in the distal right ureter on my interpretation. Overall he is feeling better although his pain is starting to come back. We will repeat fentanyl 50 mcg IV and give hydrocodone 5/325 1 tab p.o. We will complete his fluids. I did discuss with him about the need for follow-up with urology. He follows with Dr. Taylor and he can work through her office for urology referral as needed. Pending CT report radiology report. Diagnostic Imaging Diagonstic Imaging: CT Plain Films/CT/US/NM/MRI: abdomen, pelvis Comments [facility]. [place], [place] NAME: BRENTON VALDES [facility] REC#: [id number] PT STATUS: REG ER : 1970 PHYSICIAN: KORTNEY BAUM MD ADMIT DATE: 04/19/23/ER Draft Date of Exam:04/19/23 CT ABD/PELVIS WO(KIDNEY STONE) PROCEDURE: CT urinary tract, rule out kidney stone. TECHNIQUE: Multiple contiguous axial images were obtained through the abdomen and pelvis without the use of intravenous contrast. Auto Exposure Controls were utilized during the CT exam to meet ALARA standards for radiation dose reduction. INDICATION: Right flank pain COMPARISON: 11/27/2013 FINDINGS: The visualized lung bases are clear. Diffusely decreased density throughout the liver. Liver is otherwise unremarkable. The spleen is unremarkable. The adrenal glands are unremarkable. The pancreas is unremarkable. The gallbladder is unremarkable. 0.5 cm calculus is identified within the right ureterovesicular junction. This is resulting in mild right hydroureteronephrosis. Additional punctate calculi are seen within the right kidney. The left kidney and ureter are unremarkable. No aneurysmal dilatation of the abdominal aorta. The urinary bladder is decompressed. Moderate left and small right fat-containing inguinal hernias. No bowel obstruction or pneumatosis. No significant adenopathy, free air, or free fluid in abdomen or pelvis. Scattered osseous degenerative changes without acute osseous abnormality. IMPRESSION: 0.5 cm calculus within the right ureterovesicular junction resulting in mild right-sided hydroureteronephrosis. Several tiny right-sided renal calculi. Fatty filtration of the liver. Additional findings as above. Dictated on workstation # [id number] Dict: 04/19/23 0734 Trans: 04/19/23 0809 CV [id number] Interpreted by: BOUBACAR ROBERT MD Electronically signed by: Departure Impression Primary Impression: Ureteral calculus, right Disposition: 01 HOME, SELF-CARE Condition: Stable Departure-Patient Inst. Decision time for Depature: 07:51 Referrals: NANDO TAYLOR MD (PCP/Family) Primary Care Physician Patient Instructions: Kidney Stone, Adult ED Add. Discharge Instructions: All discharge instructions reviewed with patient and/or family. Voiced understanding. Take medications as prescribed. You may take haze-wpo-rkryigh ibuprofen 600 mg every 8 hours as needed for pain and you should take that every 8 hours for the next 3 days. Drink plenty of fluids. You will need to follow-up with a urologist of your choice for recheck and further evaluation. You can discuss this with your doctor to help with referral or shoes one of the urologist either in [place] or [place]. Return for worse pain, fever, vomiting, weakness, breathing problems or other concerns as needed. Scripts Tamsulosin HCl (Flomax) 0.4 Mg Cap 0.4 MG PO DAILY for 14 Days, #14 CAP 0 Refills Prov: KORTNEY BAUM MD 04/19/23 Ondansetron (Ondansetron Odt) 4 Mg Tab.rapdis 4 MG PO Q6H PRN for NAUSEA/VOMITING, #8 TAB 0 Refills Prov: KORTNEY BAUM MD 04/19/23 Hydrocodone/Acetaminophen (Hydrocodone-Acetamin 5-325 mg) 5 Mg-325 Mg Tablet 1 TAB PO Q6H PRN for PAIN-MODERATE (5-7) for 7 Days, #12 TAB 0 Refills Prov: KORTNEY BAUM MD 04/19/23 Cephalexin (Cephalexin) 500 Mg Tablet 500 MG PO BID, #14 TAB 0 Refills Prov: KORTNEY BAUM MD 04/19/23 Copy Copies To 1: NANDO TAYLOR MD, TIMOTHY D MD Apr 19, 2023 06:20
[2023-04-19 06:30] LABS: ALBUMIN 4.5 GM/DL (3.2-4.5); POTASSIUM 3.9 MMOL/L (3.6-5.0)
[2023-04-19 06:32] LABS: CALCIUM 9.7 MG/DL (8.5-10.1)
[2023-04-19 06:32] LABS: BACTERIA,URINE TRACE /HPF
[2023-04-19 06:33] LABS: TOTAL PROTEIN 6.9 GM/DL (6.4-8.2)
[2023-04-19 06:34] LABS: BILIRUBIN,TOTAL 0.5 MG/DL (0.1-1.0)
[2023-04-19 06:36] LABS: CREATININE SERUM 1.39 MG/DL (0.60-1.30)
[2023-04-19] MEDS ORDERED: HYDROcodone/APAP 5 MG/325 MG (LORTAB) TAB PO ONE (08:00)
[2023-04-19] MEDS ORDERED: ONDA4TAB11 PO (08:08)
[2023-04-19] MEDS ORDERED: ACHD5005 PO (08:08)
[2023-04-19] MEDS ORDERED: CEPH500T PO (08:08)
[2023-04-19] MEDS ORDERED: TMSL.4C PO (08:08)
--- NOTE | 2023-04-19 08:09 | Diagnostic Imaging Report ---
PROCEDURE: CT urinary tract, rule out kidney stone. TECHNIQUE: Multiple contiguous axial images were obtained through the abdomen and pelvis without the use of intravenous contrast. Auto Exposure Controls were utilized during the CT exam to meet ALARA standards for radiation dose reduction. INDICATION: Right flank pain COMPARISON: 11/27/2013 FINDINGS: The visualized lung bases are clear. Diffusely decreased density throughout the liver. Liver is otherwise unremarkable. The spleen is unremarkable. The adrenal glands are unremarkable. The pancreas is unremarkable. The gallbladder is unremarkable. 0.5 cm calculus is identified within the right ureterovesicular junction. This is resulting in mild right hydroureteronephrosis. Additional punctate calculi are seen within the right kidney. The left kidney and ureter are unremarkable. No aneurysmal dilatation of the abdominal aorta. The urinary bladder is decompressed. Moderate left and small right fat-containing inguinal hernias. No bowel obstruction or pneumatosis. No significant adenopathy, free air, or free fluid in abdomen or pelvis. Scattered osseous degenerative changes without acute osseous abnormality. IMPRESSION: 0.5 cm calculus within the right ureterovesicular junction resulting in mild right-sided hydroureteronephrosis. Several tiny right-sided renal calculi. Fatty filtration of the liver. Additional findings as above. Dictated by: Dictated on workstation # [id number]
[2023-04-19 08:26] VITALS: BP 124/98
== END 2023-04-19 08:25 | disposition home or self-care (01) ==
LOC: EDUNIT# 05:55 → ER 05:58
DX: N13.2 Hydronephrosis with renal and ureteral calculous obstruction (principal); R79.89 Other specified abnormal findings of blood chemistry
CPT/HCPCS: 36415; 74176; 80053; 81000; 85025